=== PATIENT | male | born 1935 | race Caucasian/White ===

== ENCOUNTER 2021-09-21 11:40 | Inpatient (IN) ==
--- NOTE | 2021-09-21 12:18 | Emergency Department Note ---
Impression & Plan COVID-19 Discharge ED Provider Note HPI: The patient is an 86-year-old gentleman with history of stage III chronic kidney disease, early onset dementia according to his son at the bedside, presents the emergency department after he was found down on the ground in his home this morning when his son came to check on him and his . Patient son at the bedside states that the patient has been exhibiting some weakness and has been fairly ill over the past 2 to 3 weeks. He states that he does seem to have some memory issues that have been getting progressively worse also during this time. Patient has been sleeping in the downstairs of his home, he lives there with his and no one else is in the home. He has been having multiple falls over the past several months. On arrival here to the ED the patient is alert, he does display some mild increased work of breathing. He was placed on nasal cannula oxygen in the field secondary to reported hypoxia. He is otherwise without fever on arrival, he is noted to be hypertensive on arrival. 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, no scleral erythema of the right eye Pulmonary: Diminished breath sounds bilaterally without wheezing or crackles Cardio: Regular rate and rhythm GI: Abdomen is soft, nontender : No suprapubic tenderness MSK: No evidence of trauma or malformation of the extremities, no edema Skin: No evidence of rash Neuro: Alert, no focal deficits Psychiatric: Cooperative equipment monitor phototypesetting: - An order was placed for continuous cardiac monitoring - Patient was noted to be in sinus rhythm with rate of 92 EKG: Rate: 94 Rhythm: Sinus rhythm Intervals: Within normal limits Time: 1308 ST changes: No ST elevation Medical Decision Making: Patient presented to the emergency department generalized weakness, he was found down at his home this morning. He was noted to have an increased oxygen requirement in the field with some hypoxia, placed on 3 L nasal cannula oxygen in the field with good improvement by the time he arrived here to the ED. Lab work here in the ED shows what is likely the patient's baseline creatinine level at 1.66, he is hyponatremic at 146, he was given IV fluids here in the ED for suspected dehydration. He has had some ambulatory dysfunction at home as well as weakness and multiple falls, x-ray imaging of the chest does not show any evidence of fracture, x-ray imaging of the hips does not show any evidence of hip fracture or dislocation. CT imaging of the head was obtained following small dose of Haldol and Ativan as the patient was exhibiting some anxiety and did not want to have this test done, he eventually was in agreement to following medication and CT imaging of the head does not show any evidence of an acute intracranial process. Troponin level is slightly elevated 0.05, this is in conjunction with the patient's chronic kidney disease, he has not had any complaint of chest pain, I do not see any acute ischemic changes on his EKG. Chest x-ray does show evidenc e of a viral pneumonia pattern, COVID-19 testing was obtained here in the ED and is positive. I suspect this may be a source to possibly be exacerbating the patient's underlying ambulatory dysfunction and dementia. He remained hemodynamically stable on 3 L nasal cannula oxygen, he was given a dose of Decadron for his COVID-19 status with hypoxia and viral pneumonia. I discussed the above findings with the patient's son at the bedside, he is in agreement for admission, states the patient will likely need to be placed secondary to his ambulatory dysfunction and safety issues at home. Will be medically admitted for his hypoxia and COVID-19. In addition he has been hypertensive here in the ED and on my reassessment was 202 systolic, he was ordered a dose of IV labetalol. His respiratory status has not changed throughout his stay. Patient son at the bedside is in agreement the above plan, [facility] for consultation for admission. I did discuss the case with the on-call midlevel provider who is in agreement for admission under the service of Dr. Alvarado. Patient was admitted in improved condition. Critical care time: 33 minutes -Stabilization of hypoxia requiring supplemental oxygen for oxygen saturations less than 90% on room air, administration of IV medications for hypertension greater than 200 systolic, time spent at the bedside, interpretation of diagnostic studies, discussion with other healthcare providers, discussion with family Diagnosis: 1. COVID-19 pneumonia 2. Hypoxia with supplemental oxygen requirement 3. Hypernatremia 4. Elevated creatinine 5. Generalized weakness/ambulatory dysfunction with multiple falls at home 6. Elevated troponin Disposition: Admission Theron Jaimes DO Emergency Medicine Past Med/Surg History Surgical History S/P TURP Social History Smoking Status: Never smoker Feels Safe at Home: Yes Allergies Allergies Allergy/AdvReac Type Severity Reaction Status Date / Time potato Allergy Severe ANAPHYLAXIS Verified 09/21/21 14:49 starch Allergy Severe Difficulty Unverified 09/21/21 16:01 Breathing grass pollen-perennial rye, Allergy Intermediate ITCHY Verified 09/21/21 14:49 standar EYES, RUNNY NOSE, SNEEZING hydrochlorothiazide Allergy Unknown Dizziness, Unverified 09/21/21 16:01 Itching, Nausea pantoprazole Allergy Unknown Headache Unverified 09/21/21 16:01 Penicillins Allergy Unknown HAPPENED Verified 09/21/21 14:49 TO LONG AGO TO REMEMBER Sulfa (Sulfonamide Allergy Unknown Rash/ Lip Unverified 09/21/21 16:01 Antibiotics) Swelling pseudoephedrine AdvReac Unknown Urinary Unverified 09/21/21 16:01 [From Sudafed] Retention Dust Allergy Intermediate RUNNY Uncoded 09/21/21 14:49 NOSE, ITCHY EYES, SNEEZING Home Meds Home Medications Medication Instructions Recorded Confirmed acetaminophen-caffeine 500 mg-65 2 tab PO Q12H 09/21/21 09/21/21 mg tablet (Excedrin Tension Headache) aspirin 81 mg chewable tablet 81 mg PO DAILY 09/21/21 09/21/21 famotidine 10 mg tablet (Pepcid AC) 10 mg PO BID 09/21/21 09/21/21 losartan 100 mg tablet 100 mg PO DAILY 09/21/21 09/21/21 multivitamin 8 tab PO DAILY 09/21/21 09/21/21 multivitamin with minerals 4 tab PO DAILY 09/21/21 09/21/21 neomycin 3.5 mg/g-polymyxin B 1 applic OPHTHALMIC (EYE) HS PRN 09/21/21 09/21/21 10,000 unit/g-dexameth 0.1 % eye oint polyethylene glycol 3350 17 17 g PO DAILY PRN 09/21/21 09/21/21 gram/dose oral powder (Miralax) sodium chloride 0.65 % nasal spray 2 spray INTRANASAL BID PRN 09/21/21 09/21/21 aerosol (Saline Nasal) Results & Data (ED) Vital Signs Vital Signs - 24 hr 09/21/21 11:56 09/21/21 12:16 09/21/21 13:24 Temperature 37.6 C H Temperature Source Axillary Pulse Rate 100 H Pulse Rate [Apical] 98 H Respiratory Rate 20 22 Blood Pressure 191/127 H Blood Pressure [Right Arm] 183/129 H Blood Pressure Mean 148 Blood Pressure Mean [Right Arm] 147 Pulse Oximetry 92 91 94 Oxygen Delivery Method Nasal Cannula Nasal Cannula Nasal Cannula Oxygen Flow Rate 5 5 4 Sepsis Recent Fever Within 48 Hours No Sepsis New/Unexplained Change in Mental Status Yes Sepsis Action Taken by Nursing No Action Required 09/21/21 15:46 Temperature Temperature Source Pulse Rate Pulse Rate [Apical] 97 H Respiratory Rate 28 H Blood Pressure Blood Pressure [Right Arm] 202/128 H Blood Pressure Mean Blood Pressure Mean [Right Arm] 152 Pulse Oximetry 94 Oxygen Delivery Method Room Air Oxygen Flow Rate Sepsis Recent Fever Within 48 Hours Sepsis New/Unexplained Change in Mental Status Sepsis Action Taken by Nursing Laboratory Data Result diagrams: 09/21/21 11:20 09/21/21 11:20 Lab Results 09/21/21 09/21/21 09/21/21 Range/Units 11:20 11:20 11:20 WBC 6.92 (4.8-10.8) K/uL RBC 4.45 L (4.7-6.1) M/uL Hgb 13.4 L (14.0-18.0) g/dL Hct 40.8 L (42-52) % MCV 91.7 (80-100) fL MCH 30.1 (25-34) pg MCHC 32.8 (32-36) g/dL RDW Std Deviation 44.3 (36.4-46.3) fL RDW Coeff of Ga 13.2 (11.5-14.5) % Plt Count 129 L (130-400) K/uL MPV 11.6 H (7.4-10.4) fL Immature Gran % (Auto) 0.4 % Neut % (Auto) 83.2 % Lymph % (Auto) 10.7 % [place] % (Auto) 5.6 % Eos % (Auto) 0.0 % Baso % (Auto) 0.1 % Neut # (Auto) 5.75 (1.4-6.5) K/uL Lymph # (Auto) 0.74 L (1.2-3.4) K/uL [place] # (Auto) 0.39 (0.11-0.59) K/uL Eos # (Auto) 0.00 (0-0.5) K/uL Baso # (Auto) 0.01 (0-0.2) K/uL Immature Gran # (Auto) 0.03 H (0.00-0.02) K/uL PT 10.8 (9.0-12.0) Seconds INR 1.1 (0.9-1.1) Sodium 146 H (136-145) mmol/L Potassium 4.2 (3.5-5.1) mmol/L Chloride 111 H (98-107) mmol/L Carbon Dioxide 24 (21-32) mmol/L Anion Gap 11 (3-11) BUN 44 H (6-23) mg/dl Creatinine 1.66 H (0.6-1.4) mg/dl Est Cr Clr Drug Dosing Not Reportable Est GFR ( Amer) 42.6 ml/min Est GFR (Non-Af Amer) 36.8 ml/min BUN/Creatinine Ratio 26.5 H (10-20) Glucose 116 H (70-99(Fasting)) mg/dl Calcium 8.3 L (8.5-10.1) mg/dl Total Bilirubin 0.9 (0.2-1.0) mg/dl AST 38 (13-39) U/L ALT 18 (7-52) U/L Alkaline Phosphatase 52 (34-104) U/L Troponin I 0.05 H* (0-0.04) ng/ml Total Protein 6.8 (6.0-8.3) gm/dl Albumin 3.7 (3.4-5.0) gm/dl Globulin 3.1 (2.5-4.0) gm/dl Albumin/Globulin Ratio 1.2 (0.9-2) Urine Color Urine Appearance (Clear) Urine pH (4.5-7.5) Ur Specific [place] (1.000-1.030) Urine Protein (Negative) Urine Glucose (UA) (Negative) Urine Ketones (Negative) Urine Blood (Negative) Urine Nitrite (Negative) Urine Bilirubin (Negative) Urine Urobilinogen (Negative) Ur Leukocyte Esterase (Negative) Urine WBC (Auto) (0-5) /hpf Urine RBC (Auto) (0-4) /hpf U Hyaline Cast (Auto) (0-5) /lpf U Epithel Cells (Auto) (0-5) /lpf Urine Bacteria (Auto) (Negative) Granular Casts (0) /lpf SARS-CoV-2, RNA, NAAT (NEGATIVE) 09/21/21 09/21/21 Range/Units 13:10 Unknown WBC (4.8-10.8) K/uL RBC (4.7-6.1) M/uL Hgb (14.0-18.0) g/dL Hct (42-52) % MCV (80-100) fL MCH (25-34) pg MCHC (32-36) g/dL RDW Std Deviation (36.4-46.3) fL RDW Coeff of Ga (11.5-14.5) % Plt Count (130-400) K/uL MPV (7.4-10.4) fL Immature Gran % (Auto) % Neut % (Auto) % Lymph % (Auto) % [place] % (Auto) % Eos % (Auto) % Baso % (Auto) % Neut # (Auto) (1.4-6.5) K/uL Lymph # (Auto) (1.2-3.4) K/uL [place] # (Auto) (0.11-0.59) K/uL Eos # (Auto) (0-0.5) K/uL Baso # (Auto) (0-0.2) K/uL Immature Gran # (Auto) (0.00-0.02) K/uL PT (9.0-12.0) Seconds INR (0.9-1.1) Sodium (136-145) mmol/L Potassium (3.5-5.1) mmol/L Chloride (98-107) mmol/L Carbon Dioxide (21-32) mmol/L Anion Gap (3-11) BUN (6-23) mg/dl Creatinine (0.6-1.4) mg/dl Est Cr Clr Drug Dosing Est GFR ( Amer) ml/min Est GFR (Non-Af Amer) ml/min BUN/Creatinine Ratio (10-20) Glucose (70-99(Fasting)) mg/dl Calcium (8.5-10.1) mg/dl Total Bilirubin (0.2-1.0) mg/dl AST (13-39) U/L ALT (7-52) U/L Alkaline Phosphatase (34-104) U/L Troponin I (0-0.04) ng/ml Total Protein (6.0-8.3) gm/dl Albumin (3.4-5.0) gm/dl Globulin (2.5-4.0) gm/dl Albumin/Globulin Ratio (0.9-2) Urine Color Dark Yellow Urine Appearance Clear (Clear) Urine pH 5.0 (4.5-7.5) Ur Specific [place] 1.025 (1.000-1.030) Urine Protein 2+ H (Negative) Urine Glucose (UA) Negative (Negative) Urine Ketones Trace H (Negative) Urine Blood Negative (Negative) Urine Nitrite Negative (Negative) Urine Bilirubin Negative (Negative) Urine Urobilinogen Negative (Negative) Ur Leukocyte Esterase Negative (Negative) Urine WBC (Auto) 1-5 (0-5) /hpf Urine RBC (Auto) 10-30 H (0-4) /hpf U Hyaline Cast (Auto) 10-30 H (0-5) /lpf U Epithel Cells (Auto) 20-30 H (0-5) /lpf Urine Bacteria (Auto) Negative (Negative) Granular Casts 10-20 H (0) /lpf SARS-CoV-2, RNA, NAAT POSITIVE A* (NEGATIVE) Administered Medications Discontinued Medications Dexamethasone (Dexamethasone Sod Inj 4 Mg/Ml Vial) Confirm Administered Dose 4 mg .ROUTE .STK-MED ONE Stop: 09/21/21 15:59 Last Admin: 09/21/21 16:07 Dose: Not Given Documented by: [id number] Dexamethasone (Dexamethasone Sod Inj 4 Mg/Ml Vial) Confirm Administered Dose 4 mg .ROUTE .STK-MED ONE Stop: 09/21/21 16:02 Last Admin: 09/21/21 16:07 Dose: Not Given Documented by: [id number] Haloperidol Lactate (Haloperidol Lactate 5 Mg/Ml 1 Ml Vial) 5 mg IV NOW STA Stop: 09/21/21 13:53 Last Admin: 09/21/21 13:57 Dose: 5 mg Documented by: [id number] Sodium Chloride (Nss) 500 mls @ 999 mls/hr IV .Q31M MARÍA Stop: 09/21/21 13:00 Last Admin: 09/21/21 13:27 Dose: 999 mls/hr Documented by: [id number] Lorazepam (Ativan) 0.5 mg in 1 mls @ 1 mls/min IV NOW STA Stop: 09/21/21 13:53 Last Admin: 09/21/21 13:57 Dose: 1 mls/min Documented by: [id number] Dexamethasone 8 mg/ Syringe 2 mls @ 1 mls/min IV ONE ONE Stop: 09/21/21 15:50 Last Admin: 09/21/21 16:01 Dose: 1 mls/min Documented by: [id number] Labetalol HCl (Labetalol Hcl Iv 5 Mg/Ml 20ml) 10 mg IV NOW STA Stop: 09/21/21 16:05 Last Admin: 09/21/21 16:14 Dose: 10 mg Documented by: [id number] Cosigned by: [id number] Imaging Data Radiologist's Impression: Chest X-Ray 09/21/21 12:16 XR chest 1V portable CLINICAL HISTORY: Fall. COMPARISON STUDY: Chest radiograph December 20, 2015. FINDINGS: No pneumothorax or pleural effusion is noted. Extensive right lung airspace opacity is noted with moderate airspace opacity within the left mid and lower lung. There is no evidence for pulmonary edema. Cardiomegaly is noted. There is tortuosity/dilatation of the thoracic aorta. Several old left rib fractures are noted. IMPRESSION: 1. No pneumothorax. 2. Moderate to extensive bilateral airspace opacities, as described above. The findings favor pneumonia, likely viral. Radiographic follow-up to ensure resolution is recommended. 3. Cardiomegaly. Tortuosity/dilatation of the thoracic aorta. ACT 112: Negative or not required by law. Electronically signed by: Tyree Aviles M.D. 09/21/2021 3:[address] 09/21/21 12:16 CT OF THE HEAD WITHOUT CONTRAST CLINICAL HISTORY: Trauma. COMPARISON STUDY: No previous studies for comparison. CT DOSE: 994.59 mGy.cm TECHNIQUE: Helical axial images of the head were obtained without IV contrast. Automated exposure control was utilized for the study. A dose lowering technique was utilized adhering to the principles of ALARA. FINDINGS: No acute intracranial hemorrhage, midline shift or mass effect is present. The ventricular system is unremarkable. White matter hypodensity sug gests small vessel disease. The basal cisterns are patent. No extra-axial collections are present. There are no findings to suggest acute dural sinus thrombosis or acute territorial infarct. No significant calvarial abnormalities are present. Visualized portions of the sinuses and mastoid air cells are clear. 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 IMPRESSION: 1. No acute intracranial findings. 2. No calvarial fracture. ACT 112: Negative or not required by law. Electronically signed by: Tyree Aviles M.D. 09/21/2021 3:11 PM Hip/Pelvis X-Ray 09/21/21 12:17 XR hip SAKINA 2v w pelvis CLINICAL HISTORY: Fall. COMPARISON STUDY: No previous studies for comparison. FINDINGS: Sacroiliac joints and symphysis pubis are intact. No acute fracture is identified within the pelvis or hips. There may be postoperative findings within the lower lumbar spine. There is mild joint space narrowing and moderate osteophytosis of both hips. IMPRESSION: No acute fracture within the pelvis or hips. ACT 112: Negative or not required by law. Electronically signed by: Tyree Aviles M.D. 09/21/2021 3:38 PM Discharge Plan Visit Data Chief Complaint: Fall ED Provider: Theron Jaimes Discharge Problem: COVID-19 Forms Stand Alone Forms: [facility] Prescriptions Prescriptions: No Action multivitamin Tablet 8 tab PO DAILY RF: 0 famotidine [Pepcid AC] 10 mg Tablet 10 mg PO BID RF: 0 Excedrin Tension Headache 500-65 mg Tablet 2 tab PO Q12H RF: 0 aspirin 81 mg Tablet,Chewable 81 mg PO DAILY RF: 0 Vision Multivitamin Tablet 4 tab PO DAILY RF: 0 polyethylene glycol 3350 [Miralax] 17 gram/dose Powder 17 g PO DAILY PRN (Reason: Constipation) RF: 0 losartan 100 mg tablet 100 mg PO DAILY RF: 0 neomycin-polymyxin B-dexameth 3.5 mg/g-10,000 unit/g-0.1 % ointment 1 applic ophthalmic (eye) HS PRN (Reason: Apply To Eyelid) RF: 0 Saline Nasal 0.65 % Aerosol,[place] 2 spray INTRANASAL BID PRN (Reason: Nasal Dryness) RF: 0 Referrals Referrals: PCP,NO [Primary Care Provider] -
[2021-09-21] MEDS ORDERED: SODIUM CHLORIDE 0.9% 500 ML IV SCH (12:30)
[2021-09-21 12:39] LABS: INR 1.1 (0.9-1.1); Prothrombin Time 10.8 Seconds (9.0-12.0)
[2021-09-21 12:47] LABS: Hematocrit (blood only) 40.8 % (42-52); Hemoglobin 13.4 g/dL (14.0-18.0); Mean Corpuscular Hemoglobin 30.1 pg (25-34); Mean Corpuscular Hgb Conc 32.8 g/dL (32-36); Mean Corpuscular Volume 91.7 fL (80-100); Mean Platelet Volume 11.6 fL (7.4-10.4); Platelet Count 129 K/uL (130-400); RDW Coefficient of Variation 13.2 % (11.5-14.5); RDW Standard Deviation 44.3 fL (36.4-46.3); Red Blood Count 4.45 M/uL (4.7-6.1); White Blood Count 6.92 K/uL (4.8-10.8)
[2021-09-21 12:51] LABS: Alanine Aminotransferase 18 U/L (7-52); Albumin Globulin Ratio 1.2 (0.9-2); Albumin Level 3.7 gm/dl (3.4-5.0); Alkaline Phosphatase 52 U/L (34-104); Anion Gap 11 (3-11); Aspartate Aminotransferase 38 U/L (13-39); BUN Creatinine Ratio 26.5 (10-20); Bilirubin,Total 0.9 mg/dl (0.2-1.0); Blood Urea Nitrogen 44 mg/dl (6-23); Calcium 8.3 mg/dl (8.5-10.1); Carbon Dioxide 24 mmol/L (21-32); Chloride 111 mmol/L (98-107); Est GFR (African American) 42.6 ml/min; Est GFR (Non-African American) 36.8 ml/min; Globulin 3.1 gm/dl (2.5-4.0); Glucose 116 mg/dl (70-99(Fasting)); Potassium 4.2 mmol/L (3.5-5.1); Sodium 146 mmol/L (136-145); Total Protein 6.8 gm/dl (6.0-8.3)
[2021-09-21 12:57] LABS: Troponin I 0.05 ng/ml (0-0.04)
[2021-09-21 13:09] LABS: Appearance Urine Clear (Clear); Bacteria Urine Automated Negative (Negative); Bilirubin Urine Negative (Negative); Blood Urine Negative (Negative); Color Urine Dark Yellow; Epithelial Cell Urine Auto 20-30 /lpf (0-5); Glucose Urine UA Negative (Negative); Ketones Urine Trace (Negative); Leukocyte Esterase Urine Negative (Negative); Nitrite Urine Negative (Negative); Protein Urine 2+ (Negative); Specific Gravity Urine 1.025 (1.000-1.030); Urobilinogen Urine Negative (Negative)
[2021-09-21 13:23] LABS: Basophils # (auto) 0.01 K/uL (0-0.2); Basophils % (auto) 0.1 %; Immature Granulocytes # (auto) 0.03 K/uL (0.00-0.02); Immature Granulocytes % (auto) 0.4 %; Lymphocytes # (auto) 0.74 K/uL (1.2-3.4); Lymphocytes % (auto) 10.7 %; Monocytes # (auto) 0.39 K/uL (0.11-0.59); Monocytes % (auto) 5.6 %; Neutrophils # (auto) 5.75 K/uL (1.4-6.5); Neutrophils % (auto) 83.2 %
[2021-09-21] MEDS ORDERED: HALOPERIDOL LACTATE 5 MG/ML 1 ML VIAL IV STA (13:52)
[2021-09-21] MEDS ORDERED: LORazepam 0.5 MG/1 ML VIAL IV STA (13:52)
--- NOTE | 2021-09-21 15:12 | CT Scan Report ---
CT OF THE HEAD WITHOUT CONTRAST CLINICAL HISTORY: Trauma. COMPARISON STUDY: No previous studies for comparison. CT DOSE: 994.59 mGy.cm TECHNIQUE: Helical axial images of the head were obtained without IV contrast. Automated exposure con trol was utilized for the study. A dose lowering technique was utilized adhering to the principles o f ALARA. FINDINGS: No acute intracranial hemorrhage, midline shift or mass effect is present. The ventricular system is unremarkable. White matter hypodensity suggests small vessel disease. The basal cisterns ar e patent. No extra-axial collections are present. There are no findings to suggest acute dural sinus thrombosis or acute territorial infarct. No significant calvarial abnormalities are present. Visualiz ed portions of the sinuses and mastoid air cells are clear. Left globe prosthesis is incidentally not ed. IMPRESSION: 1. No acute intracranial findings. 2. No calvarial fracture. ACT 112: Negative or not required by law. Electronically signed by: Tyree Aviles M.D. 09/21/2021 3:11 PM
--- NOTE | 2021-09-21 15:37 | XRay Report ---
XR chest 1V portable CLINICAL HISTORY: Fall. COMPARISON STUDY: Chest radiograph December 20, 2015. FINDINGS: No pneumothorax or pleural effusion is noted. Extensive right lung airspace opacity is note d with moderate airspace opacity within the left mid and lower lung. There is no evidence for pulmona ry edema. Cardiomegaly is noted. There is tortuosity/dilatation of the thoracic aorta. Several old le ft rib fractures are noted. IMPRESSION: 1. No pneumothorax. 2. Moderate to extensive bilateral airspace opacities, as described above. The findings favor pneumon ia, likely viral. Radiographic follow-up to ensure resolution is recommended. 3. Cardiomegaly. Tortuosity/dilatation of the thoracic aorta. ACT 112: Negative or not required by law. Electronically signed by: Tyree Aviles M.D. 09/21/2021 3:36 PM
--- NOTE | 2021-09-21 15:40 | XRay Report ---
XR hip SAKINA 2v w pelvis CLINICAL HISTORY: Fall. COMPARISON STUDY: No previous studies for comparison. FINDINGS: Sacroiliac joints and symphysis pubis are intact. No acute fracture is identified within th e pelvis or hips. There may be postoperative findings within the lower lumbar spine. There is mild vahid int space narrowing and moderate osteophytosis of both hips. IMPRESSION: No acute fracture within the pelvis or hips. ACT 112: Negative or not required by law. Electronically signed by: Tyree Aviles M.D. 09/21/2021 3:38 PM
[2021-09-21] MEDS ORDERED: dexAMETHasone 8 MG in SYRINGE 0 ML IV ONE (15:49)
[2021-09-21] MEDS ORDERED: DEXAMETHASONE SOD INJ 4 MG/ML VIAL ONE ×2 (15:58→16:01)
[2021-09-21] MEDS ORDERED: LABETALOL HCL IV 5 MG/ML 20ML IV STA (16:04)
[2021-09-21 16:52] LABS: C Reactive Protein 13.68 mg/dl (0-0.5)
[2021-09-21 17:10] LABS: Ferritin 394.1 ng/ml (8-388)
[2021-09-21] MEDS ORDERED: hydrALAZINE HCL 20 MG/ML VIAL IV PRN (17:38)
[2021-09-21] MEDS ORDERED: LABETALOL HCL IV 5 MG/ML 20ML IV PRN (17:38)
--- NOTE | 2021-09-21 18:19 | History & Physical Report ---
Date of Service September 21, 2021 Assessment & Plan (1) Ambulatory dysfunction: Plan: Patient is 86-year-old male with PMH HTN, CKD III, PAD, anophthalmos left eye, presented to ER with complaint of fall. Pt with recurrent falls. Has progressive weakness past 3 weeks with illness In ER CT head: No acute intracranial abnormality CPK: Within normal limits Patient with ambulatory dysfunction at baseline has worsened with current COVID- 19 infection Fall precautions Consider PT/OT eval to evaluate prior to discharge (2) COVID-19: Plan: Positive COVID-19 NAAT in ER. CXR: Bilateral airspace opacities consistent with viral pneumonia Patient is not vaccinated Reported onset of symptoms 3 weeks ago. Noted shortness of breath past several days Hypoxic in ER in the 80s, currently on 3 L via nasal cannula with sats 94% CRP, ferritin elevated Procalcitonin pending In ER given dexamethasone Continue dexamethasone Continue supplemental oxygen Airborne isolation CBC, CMP/BMP in am (3) CKD (chronic kidney disease), stage III: Plan: Cr: 1.6. Baseline Cr: 1.6-1.7 Monitor renal functions, avoid nephrotoxic agents when possible (4) Hypertension: Plan: Hypertensive in ER Continue losartan Labetalol, hydralazine as needed DVT Prophylaxis Heparin SQ DNR/DNI as per discussion with pt's son Follows with Dr Quinones for routine care Pt was seen and care coordinated with Dr Alvarado. See addendum History of Present Illness Chief Complaint: Fall Primary Care Provider: Robert Quinones MD Patient is 86-year-old male with PMH HTN, CKD III, PAD, anophthalmos left eye, presented to ER with complaint of fall. Cardiac history obtained from patient's son. Son reports 3 weeks ago both patient and patient's developed fevers, congestion, mild cough. Reports fever congestion and cough have resolved however patient has had weakness. Typically ambulates with cane however past 2 weeks has been sitting and recliner chair and feels too weak to ambulate. Reports patient with history recurrent falls in the past however since illness patient has been falling on almost daily basis. Reports a couple of days ago patient had a fall during the middle night and patient son was not notified by patient's so patient laid on floor for several hours before son got there in the morning. Reports last night patient had a fall around 2 AM and could not get patient up. Patient was on the floor for 6 hours today. Then reports past couple of days he has noticed patient seemed to be breathing heavier and short of breath. Patient denies chest pain. Denies nausea, vomiting, diarrhea. Patient son reports patient has had steady decline with his memory and is worse past couple of years. Unable to further obtain ROS secondary to patient's cognitive status. Allergies Allergy/AdvReac Type Severity Reaction Status Date / Time potato Allergy Severe ANAPHYLAXIS Verified 09/21/21 14:49 starch Allergy Severe Difficulty Unverified 09/21/21 16:01 Breathing grass pollen-perennial rye, Allergy Intermediate ITCHY Verified 09/21/21 14:49 standar EYES, RUNNY NOSE, SNEEZING hydrochlorothiazide Allergy Unknown Dizziness, Unverified 09/21/21 16:01 Itching, Nausea pantoprazole Allergy Unknown Headache Unverified 09/21/21 16:01 Penicillins Allergy Unknown HAPPENED Verified 09/21/21 14:49 TO LONG AGO TO REMEMBER Sulfa (Sulfonamide Allergy Unknown Rash/ Lip Unverified 09/21/21 16:01 Antibiotics) Swelling pseudoephedrine AdvReac Unknown Urinary Unverified 09/21/21 16:01 [From Sudafed] Retention Dust Allergy Intermediate RUNNY Uncoded 09/21/21 14:49 NOSE, ITCHY EYES, SNEEZING Home Medications Medication Instructions Recorded Confirmed Type acetaminophen-caffeine 500 mg-65 2 tab PO Q12H 09/21/21 09/21/21 History mg tablet (Excedrin Tension Headache) aspirin 81 mg chewable tablet 81 mg PO DAILY 09/21/21 09/21/21 History famotidine 10 mg tablet (Pepcid AC) 10 mg PO BID 09/21/21 09/21/21 History losartan 100 mg tablet 100 mg PO DAILY 09/21/21 09/21/21 History multivitamin 8 tab PO DAILY 09/21/21 09/21/21 History multivitamin with minerals 4 tab PO DAILY 09/21/21 09/21/21 History neomycin 3.5 mg/g-polymyxin B 1 applic OPHTHALMIC (EYE) HS PRN 09/21/21 09/21/21 History 10,000 unit/g-dexameth 0.1 % eye oint polyethylene glycol 3350 17 17 g PO DAILY PRN 09/21/21 09/21/21 History gram/dose oral powder (Miralax) sodium chloride 0.65 % nasal spray 2 spray INTRANASAL BID PRN 09/21/21 09/21/21 History aerosol (Saline Nasal) Past Med/Surg History Medical History (Updated 09/21/21 @ 18:29 by Shell Louis PA-C) Blindness of left eye BPH (benign prostatic hypertrophy) CKD (chronic kidney disease), stage III GERD (gastroesophageal reflux disease) Hypertension Surgical History (Updated 09/21/21 @ 18:26 by Shell Louis PA-C) H/O esophagogastroduodenoscopy H/O nasal septoplasty History of removal of eye "O.S." S/P tonsillectomy S/P TURP S/P TURP (transurethral resection of prostate) Family History (Updated 09/21/21 @ 18:26 by Shell Louis PA-C) Mother Breast cancer Other Hypertension Social History (Updated 09/21/21 @ 18:26 by Shell Louis PA-C) Smoking Status: Never smoker Hx Alcohol Use: No Hx Substance Use: No Feels Safe at Home: Yes Review of Systems Review of Systems: Unobtainable due to cognitive status Physical Exam Physical Exam: General: Elderly male, WDWN Head: normocephalic, atraumatic Eyes: PERRL, EOM's intact with no icterus of right eye. Left: anophthalmos ENT: hard of hearing, normal inspection external ears, nose, mucous membranes moist Neck: supple, trachea midline Lungs: on 3L via NC with respiration 24, +rales bases bilaterally CV: RRR, no pretibial edema Abd: normal BS, soft, non-tender Ext: no cyanosis, no calf tenderness Neuro: Alert, pleasantly confused, generalized weakness Skin: warm, dry Results & Data Results & Data ([facility]) Vital Signs (Past 12 Hours) Vital Signs Temp Pulse Pulse Resp BP BP Pulse Ox 09/21/21 15:46 97 H 28 H 202/128 H 94 09/21/21 13:24 98 H 22 183/129 H 94 09/21/21 12:16 91 09/21/21 11:56 37.6 C H 100 H 20 191/127 H 92 Laboratory Results Short CBC 09/21/21 Range/Units 11:20 WBC 6.92 (4.8-10.8) K/uL Hgb 13.4 L (14.0-18.0) g/dL Hct 40.8 L (42-52) % Plt Count 129 L (130-400) K/uL BMP 09/21/21 11:20 Sodium 146 H Potassium 4.2 Chloride 111 H Carbon Dioxide 24 BUN 44 H Creatinine 1.66 H Glucose 116 H Calcium 8.3 L Cardiac Enzymes 09/21/21 09/21/21 Range/Units 11:20 11:20 Total Creatine Kinase 158 (30-223) U/L Troponin I 0.05 H* (0-0.04) ng/ml Liver Function 09/21/21 Range/Units 11:20 Total Bilirubin 0.9 (0.2-1.0) mg/dl AST 38 (13-39) U/L ALT 18 (7-52) U/L Alkaline Phosphatase 52 (34-104) U/L Albumin 3.7 (3.4-5.0) gm/dl Urine 09/21/21 Range/Units Unknown Urine Color Dark Yellow Urine Appearance Clear (Clear) Urine pH 5.0 (4.5-7.5) Ur Specific [place] 1.025 (1.000-1.030) Urine Protein 2+ H (Negative) Urine Glucose (UA) Negative (Negative) Diagnostic Findings Chest X-Ray 09/21/21 12:16 XR chest 1V portable CLINICAL HISTORY: Fall. COMPARISON STUDY: Chest radiograph December 20, 2015. FINDINGS: No pneumothorax or pleural effusion is noted. Extensive right lung airspace opacity is noted with moderate airspace opacity within the left mid and lower lung. There is no evidence for pulmonary edema. Cardiomegaly is noted. There is tortuosity/dilatation of the thoracic aorta. Several old left rib fractures are noted. IMPRESSION: 1. No pneumothorax. 2. Moderate to extensive bilateral airspace opacities, as described above. The findings favor pneumonia, likely viral. Radiographic follow-up to ensure resolution is recommended. 3. Cardiomegaly. Tortuosity/dilatation of the thoracic aorta. ACT 112: Negative or not required by law. Electronically signed by: Tyree Aviles M.D. 09/21/2021 3:[address] 09/21/21 12:16 CT OF THE HEAD WITHOUT CONTRAST CLINICAL HISTORY: Trauma. COMPARISON STUDY: No previous studies for comparison. CT DOSE: 994.59 mGy.cm TECHNIQUE: Helical axial images of the head were obtained without IV contrast. Automated exposure control was utilized for the study. A dose lowering technique was utilized adhering to the principles of ALARA. FINDINGS: No acute intracranial hemorrhage, midline shift or mass effect is present. The ventricular system is unremarkable. White matter hypodensity suggests small vessel disease. The basal cisterns are patent. No extra-axial collections are present. There are no findings to suggest acute dural sinus thrombosis or acute territorial infarct. No significant calvarial abnormalities are present. Visualized portions of the sinuses and mastoid air cells are clear. 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 IMPRESSION: 1. No acute intracranial findings. 2. No calvarial fracture. ACT 112: Negative or not required by law. Electronically signed by: Tyree Aviles M.D. 09/21/2021 3:11 PM Hip/Pelvis X-Ray 09/21/21 12:17 XR hip SAKINA 2v w pelvis CLINICAL HISTORY: Fall. COMPARISON STUDY: No previous studies for comparison. FINDINGS: Sacroiliac joints and symphysis pubis are intact. No acute fracture is identified within the pelvis or hips. There may be postoperative findings within the lower lumbar spine. There is mild joint space narrowing and moderate osteophytosis of both hips. IMPRESSION: No acute fracture within the pelvis or hips. ACT 112: Negative or not required by law. Electronically signed by: Tyree vAiles M.D. 09/21/2021 3:38 PM Code Status & VTE Plan VTE Prophylaxis Plan VTE Prophylaxis will be ordered: Yes Supervising Physician Co-Signing Physician Notes 86-year-old male with PMH HTN, CKD III, PAD, anophthalmos left eye, presented to ER 09/21 with complaint of recurrent falls, generalized weakness and ambulatory dysfunction. He also has been bed ridden and feeling sick since last 3 weeks. Labs and imagings reviewed. Trend trops, dexa for covid, PT/OT and prn meds for HTN urgency. EKG in AM. Upon Exam GENERAL: Alert and oriented x3. NAD, on 3L NC. HEENT: No pallor, no icterus. Pupils equal, round and reactive to light. Oral mucosa moist. Left Eye anophthalmos. NECK: No JVD, no neck masses. HEART: S1 and S2 heard. Regular rate and rhythm. No murmur, no gallop. RESPIRATORY SYSTEM: Normal AP diameter. No accessory muscle use. No wheezing, no crackles. Decreased breath sounds ABDOMEN: Soft, bowel sounds present, nontender, no distention. CENTRAL NERVOUS SYSTEM: No facial droop. Speech is clear. Obeys simple commands. Moves extremities. EXTREMITIES: No edema, no erythema seen. Bruises over b/l elbows. I have seen and examined the patient and have discussed the case with the provider above. I agree with the assessment and plan as stated.
[2021-09-21] MEDS ORDERED: SODIUM CHLORIDE 0.65% NA SOLN 45 ML (OCEAN) PRN (19:53)
[2021-09-21] MEDS ORDERED: POLYETHYLENE (MIRALAX) 17 GM PACK PO PRN (19:53)
[2021-09-21] MEDS ORDERED: NEOMYCIN/POLYMYXIN/DEXAMETHA OP OINT 3.5 GM TUBE OP PRN (19:53)
[2021-09-21] MEDS ORDERED: NON-FORMULARY MEDICATION (Acetaminophen-Caffeine [Excedrin Tension Headache] 500-65 mg Tab PO SCH (19:53)
[2021-09-21] MEDS: SODIUM CHLORIDE 0.45 % 1,000 ML IV SCH (20:45)
[2021-09-21] MEDS: HEPARIN SOD 5,000 UNIT/0.5 ML VIAL SQ SCH (21:01)
[2021-09-21] MEDS: FAMOTIDINE 10 MG TABLET PO SCH (21:01)
--- NOTE | 2021-09-21 22:47 | Communication Note ---
Date of Service: September 21, 2021 Overnight developments : 09/21/21, 1045PM Made aware by RN of uncontrolled blood pressure. BP 183/97 Patient comfortable as per RN. AP Hypertensive urgency Initiate Amlodipine. 09/22/21, 120AM Patient with cough symptoms productive of yellow sputum. Asking for cough medicine for sore throat as per RN. Doxycycline for superimposed bacterial infection.
[2021-09-21] MEDS ORDERED: amLODIPine BESYLATE 5 MG TAB PO SCH (22:50)
[2021-09-22 01:02] LABS: Troponin I 0.05 ng/ml (0-0.04)
[2021-09-22] MEDS ORDERED: COUGH DROP (SUGAR FREE) LOZ 24 LOZ/1 BOX BUCCAL PRN (01:15)
[2021-09-22] MEDS ORDERED: STAT IV STA (01:23)
[2021-09-22] MEDS ORDERED: DOXYCYCLINE HYCLATE 100 MG in DEXTROSE 5% 100 ML IV STA (01:25)
[2021-09-22] MEDS ORDERED: CALCIUM GLUCONATE 10% 1,000 MG in DEXTROSE 5% 50 ML IV ONE (01:27)
[2021-09-22 01:40] LABS: Magnesium 2.3 mg/dl (1.7-2.4)
[2021-09-22] MEDS: ACETAMINOPHEN 325 MG TAB PO PRN (02:29)
[2021-09-22] MEDS ORDERED: METOPROLOL TARTRATE 1 MG/ML VIAL IV PRN (08:15)
[2021-09-22] MEDS ORDERED: METOPROLOL TARTRATE 1 MG/ML VIAL IV ONE (08:18)
[2021-09-22] MEDS: ASPIRIN 81 MG ECTAB PO SCH (08:24)
[2021-09-22] MEDS: FAMOTIDINE 10 MG TABLET PO SCH ×2 (08:24→19:57)
[2021-09-22] MEDS: dexAMETHasone 6 MG in SYRINGE 0 ML IV SCH (08:24)
[2021-09-22] MEDS: HEPARIN SOD 5,000 UNIT/0.5 ML VIAL SQ SCH ×3 (08:25→21:26)
[2021-09-22] MEDS: METOPROLOL TARTRATE 1 MG/ML VIAL IV ONE ×2 (08:32→09:18)
--- NOTE | 2021-09-22 08:48 | Hospitalist Progress Note ---
Date of Service September 22, 2021 Assessment & Plan (1) Ambulatory dysfunction: (2) Acute respiratory failure with hypoxia: (3) Atrial fibrillation with RVR: Plan: 86-year-old male with PMH HTN, CKD III, PAD, anophthalmos left eye, presented to ER 09/21 with complaint of recurrent falls, generalized weakness and ambulatory dysfunction. He also has been bed ridden and feeling sick since last 3 weeks. Found covid Positive in the ED. he is being managed for the following: #. Ambulatory dysfunction: #. Recurrent Falls Per son, patient is bedridden and feeling sick since 3 weeks [employer] and has had multiple falls since 1 and half years. He uses walker. Admitting CXR positive for several old left rib fractures. Admitting CT head and x-ray hip/pelvis negative for any acute findings. Admitting CPK WNL Ambulatory dysfunction at baseline likely worsened with current COVID-19 infection. Fall precaution, PT/OT, likely need placement. #. COVID-19: #. Acute hypoxic respiratory failure Feeling sick since 3 weeks ago [employer]. And shortness of breath past several days [employer]. Admitting CXR consistent with viral pneumonia, patient not vaccinated No home oxygen. At admission, SaO2 in the 80s in ED requiring 3 L nasal cannula with improvement in SaO2 to 94%. CRP, ferritin elevated Procalcitonin negative Continue dexamethasone 09/21, not a candidate for remdesivir due to duration. Supplemental oxygen, incentive spirometer, proning as able. Currently requiring 4 L nasal cannula oxygen. Airborne isolation Follow-up labs. #. Afib RVR Patient denies history of A. fib in the past, not on any anticoagulation in the past per patient. No history of blood clot in the past. TSH wnl. Patient became A. fib RVR at 7:23 AM 09/22/2021, heart rate in 130s to 140s. Cardiology consulted, metoprolol 5 mg IV every 5 minutes as needed for total of 3 doses. Send ECHO. If not controlled will use Cardizem, await cardiology recommendation. #. CKD (chronic kidney disease), stage III: Cr: 1.6. Baseline Cr: 1.6-1.7 Monitor renal functions, avoid nephrotoxic agents when possible #. Hypertension: Hypertensive in ER Continue losartan with holding parameter Labetalol, hydralazine as needed with holding parameter DVT Prophylaxis Heparin SQ DNR/DNI as per discussion with pt's son Follows with Dr Quinones for routine care Admission and Anticipated Discharge Date Admission Date: September 21, 2021 Subjective 86-year-old gentleman being managed for ambulatory dysfunction/weakness/COVID-19 infection/pneumonia/acute respiratory failure/newly developed a fever on 09/22. Patient seen and examined at bedside, on 4 L nasal cannula oxygen, eating his breakfast, NAD, no new acute events overnight per RN. Patient reports eating okay. Patient went into A. fib RVR in the morning. This is new to him. Patient denies any chest pain or feeling of heart racing. Patient denies having any heart doctor or A. fib in the past. Pt reports improving cough. Denies fever/chills/Headache/dizziness/belly pain/other review of symptoms. Physical Exam Physical Exam: GENERAL: Alert and oriented x3. NAD, on 4L NC. HEENT: No pallor, no icterus. Pupils equal, round and reactive to light. Oral mucosa moist. Left Eye anophthalmos. NECK: No JVD, no neck masses. HEART: S1 and S2 heard. irregular rate and rhythm. No murmur, no gallop. RESPIRATORY SYSTEM: Normal AP diameter. No accessory muscle use. No wheezing, no crackles. Decreased breath sounds ABDOMEN: Soft, bowel sounds present, nontender, no distention. CENTRAL NERVOUS SYSTEM: No facial droop. Speech is clear. Obeys simple commands. Moves extremities. EXTREMITIES: No edema, no erythema seen. Bruises over b/l elbows. Results & Data Results & Data ([facility]) Vital Signs (Past 12 Hours) Vital Signs Temp Pulse Pulse Pulse Resp BP BP 09/22/21 08:19 138 H 104/74 09/22/21 08:16 138 H 09/22/21 07:45 36.3 C L 78 22 201/112 H 09/22/21 07:12 66 09/22/21 02:21 36.6 C 68 18 173/98 H 09/22/21 01:23 71 16 09/21/21 23:34 61 09/21/21 22:37 79 09/21/21 22:18 73 09/21/21 22:11 36.5 C 18 09/21/21 21:45 36.5 C 77 76 18 210/112 H 09/21/21 20:43 69 24 BP Pulse Ox Pulse Ox 09/22/21 08:19 09/22/21 08:16 104/74 09/22/21 07:45 93 09/22/21 07:12 09/22/21 02:21 91 09/22/21 01:23 163/96 H 92 09/21/21 23:34 176/97 H 94 09/21/21 22:37 183/97 H 09/21/21 22:18 09/21/21 22:11 174/92 H 93 09/21/21 21:45 210/112 H 91 09/21/21 20:43 168/101 H 92 93
[2021-09-22 09:00] LABS: Hemoglobin 12.9 g/dL (14.0-18.0); Mean Corpuscular Hemoglobin 30.4 pg (25-34); Mean Corpuscular Hgb Conc 33.1 g/dL (32-36); Mean Platelet Volume 10.3 fL (7.4-10.4); Platelet Count 161 K/uL (130-400); RDW Coefficient of Variation 13.2 % (11.5-14.5); RDW Standard Deviation 44.3 fL (36.4-46.3); Red Blood Count 4.24 M/uL (4.7-6.1); White Blood Count 6.08 K/uL (4.8-10.8)
--- NOTE | 2021-09-22 09:20 | Electrocardiogram Report ---
Test Reason : Blood Pressure : / mmHG Vent. Rate : 094 BPM Atrial Rate : 094 BPM P-R Int : 128 ms QRS Dur : 066 ms QT Int : 358 ms P-R-T Axes : 016 -22 067 degrees QTc Int : 447 ms Poor data quality, interpretation may be adversely affected Sinus rhythm with Premature supraventricular complexes Left ventricular hypertrophy with repolarization abnormality Abnormal ECG When compared with ECG of 20-DEC-2015 00:13, Premature supraventricular complexes are now Present Confirmed by Pastor Callejas ([id number]) on 09/22/2021 9:20:09 AM Referred By: REFERRED SELF Confirmed By:Pastor Callejas
[2021-09-22] MEDS: LOSARTAN POTASSIUM 50 MG TAB PO SCH (09:24)
[2021-09-22 09:26] LABS: BUN Creatinine Ratio 30.3 (10-20); Calcium 8.1 mg/dl (8.5-10.1); Creatinine Clr Calc Pharmacy 41.2 ml/min; Est GFR (African American) 51.5 ml/min; Est GFR (Non-African American) 44.4 ml/min; Magnesium 2.2 mg/dl (1.7-2.4); Phosphorus 3.8 mg/dl (2.5-4.9); Potassium 4.1 mmol/L (3.5-5.1)
[2021-09-22] MEDS: SODIUM CHLORIDE 0.45 % 1,000 ML IV SCH (09:35)
[2021-09-22 09:49] LABS: Troponin I 0.04 ng/ml (0-0.04)
--- NOTE | 2021-09-22 10:13 | Cardiology Consultation ---
Date of Consultation September 22, 2021 Assessment & Plan (1) Atrial fibrillation with RVR: (2) Acute respiratory failure with hypoxia: (3) Ambulatory dysfunction: (4) COVID-19: (5) CKD (chronic kidney disease), stage III: Unvaccinated 86-year-old male presents with Covid 19 associated pneumonia Lapsed into atrial fibrillation after admission Rapid ventricular response despite receiving multiple boluses of IV metoprolol. Consideration may be given to amiodarone however, he has received Haldol this admission which is concerning for QT prolongation with amiodarone and given his active COVID-19 associated pneumonia I would also be concerned about the effects on his lungs. So for now we will attempt rate control with IV Cardizem bolus and drip. Oral metoprolol may be continued as well. No trauma reported with the fall so may start IV heparin if the patient remains in atrial fibrillation for greater than 72 hours. With reported history of the amatory dysfunction and multiple falls the patient does not appear to be a long-term anticoagulation candidate, will need to revisit this with family prior to discharge. History of Present Illness Reason for Consultation: Atrial fibrillation with rapid ventricular response Requesting Physician: Dr. Alvarado Attending Physician: Dontrell Alvarado MD History of Present Illness The patient is an 86-year-old male who presented to [facility] on 09/21/2021 with reports of a fall. His son stated that the patient has not been feeling well for approximately 3 weeks now with fevers, cough weakness and congestion. A few days ago the patient had a fall in the middle of the night and he laid on the floor for several hours until his son was able to pick him up, approximately 6 hours. There is also been reports of worsening shortness of breath. History obtained through review of medical records and discussion with hospitalist. Allergies Allergy/AdvReac Type Severity Reaction Status Date / Time potato Allergy Severe ANAPHYLAXIS Verified 09/21/21 14:49 starch Allergy Severe Difficulty Unverified 09/21/21 16:01 Breathing grass pollen-perennial rye, Allergy Intermediate ITCHY Verified 09/21/21 14:49 standar EYES, RUNNY NOSE, SNEEZING hydrochlorothiazide Allergy Unknown Dizziness, Unverified 09/21/21 16:01 Itching, Nausea pantoprazole Allergy Unknown Headache Unverified 09/21/21 16:01 Penicillins Allergy Unknown HAPPENED Verified 09/21/21 14:49 TO LONG AGO TO REMEMBER Sulfa (Sulfonamide Allergy Unknown Rash/ Lip Unverified 09/21/21 16:01 Antibiotics) Swelling pseudoephedrine AdvReac Unknown Urinary Unverified 09/21/21 16:01 [From [facility]] Retention Dust Allergy Intermediate RUNNY Uncoded 09/21/21 14:49 NOSE, ITCHY EYES, SNEEZING Home Medications Medication Instructions Recorded Confirmed Type acetaminophen-caffeine 500 mg-65 2 tab PO Q12H 09/21/21 09/21/21 History mg tablet (Excedrin Tension Headache) aspirin 81 mg chewable tablet 81 mg PO DAILY 09/21/21 09/21/21 History famotidine 10 mg tablet (Pepcid AC) 10 mg PO BID 09/21/21 09/21/21 History losartan 100 mg tablet 100 mg PO DAILY 09/21/21 09/21/21 History multivitamin 8 tab PO DAILY 09/21/21 09/21/21 History multivitamin with minerals 4 tab PO DAILY 09/21/21 09/21/21 History neomycin 3.5 mg/g-polymyxin B 1 applic OPHTHALMIC (EYE) HS PRN 09/21/21 09/21/21 History 10,000 unit/g-dexameth 0.1 % eye oint polyethylene glycol 3350 17 17 g PO DAILY PRN 09/21/21 09/21/21 History gram/dose oral powder (Miralax) sodium chloride 0.65 % nasal spray 2 spray INTRANASAL BID PRN 09/21/21 09/21/21 History aerosol (Saline Nasal) Patient History Medical History Blindness of left eye BPH (benign prostatic hypertrophy) CKD (chronic kidney disease), stage III GERD (gastroesophageal reflux disease) Hypertension Surgical History H/O esophagogastroduodenoscopy H/O nasal septoplasty History of removal of eye "O.S." S/P tonsillectomy S/P TURP S/P TURP (transurethral resection of prostate) Family History Mother Breast cancer Other Hypertension Social History Smoking Status: Never smoker Hx Alcohol Use: No Hx Substance Use: No Preferred Language: Salvadorean Communication Ability: Effective Nitrocellulose Maker Required: No Beliefs That Will Affect Care: Roman Catholic marital status: Current Living Situation: Spouse How many Children do You have: 2 Feels Safe at Home: Yes Assistive Devices: Cane Results & Data ([facility]) Vital Signs (Past 12 Hours) Vital Signs Temp Pulse Pulse Pulse Resp BP BP 09/22/21 09:35 125 H 141/81 H 09/22/21 09:18 134 H 114/75 09/22/21 08:19 138 H 104/74 09/22/21 08:16 138 H 09/22/21 07:45 36.3 C L 78 22 201/112 H 09/22/21 07:12 66 09/22/21 02:21 36.6 C 68 18 173/98 H 09/22/21 01:23 71 16 09/21/21 23:34 61 09/21/21 22:37 79 09/21/21 22:18 73 BP Pulse Ox 09/22/21 09:35 09/22/21 09:18 09/22/21 08:19 09/22/21 08:16 104/74 09/22/21 07:45 93 09/22/21 07:12 09/22/21 02:21 91 09/22/21 01:23 163/96 H 92 09/21/21 23:34 176/97 H 94 09/21/21 22:37 183/97 H 09/21/21 22:18
[2021-09-22] MEDS ORDERED: dilTIAZem HCl 5 MG/ML 5 ML VIAL IV STA (10:15)
[2021-09-22] MEDS ORDERED: STAT IV Infusion **Titration per Protocol STA (10:15)
--- NOTE | 2021-09-22 11:11 | Electrocardiogram Report ---
Test Reason : Blood Pressure : / mmHG Vent. Rate : 138 BPM Atrial Rate : 133 BPM P-R Int : 000 ms QRS Dur : 072 ms QT Int : 336 ms P-R-T Axes : 000 -25 135 degrees QTc Int : 509 ms Atrial fibrillation with rapid ventricular response Moderate voltage criteria for LVH, may be normal variant Nonspecific ST and T wave abnormality Abnormal ECG When compared with ECG of 21-SEP-2021 13:08, Atrial fibrillation has replaced Sinus rhythm Confirmed by Pastor Callejas ([id number]) on 09/22/2021 11:10:55 AM Referred By: REFERRED SELF Confirmed By:Pastor Callejas
[2021-09-22] MEDS: dilTIAZem HCL 125 MG in DEXTROSE 5% 100 ML IV SCH ×2 (11:57→22:10)
--- NOTE | 2021-09-22 14:09 | XRay Report ---
SINGLE VIEW CHEST CLINICAL HISTORY: Dyspnea. Hypoxia. FINDINGS: An AP, portable, upright chest radiograph is compared to study dated 09/21/2021 and 11/29/2015 . The examination is degraded by portable technique and patient rotation. The heart is enlarged. Tort uosity/dilatation of the thoracic aorta is unchanged as compared to prior studies. Multifocal airspac e consolidation is again seen throughout both lungs. This is similar to yesterday. No large pleural e ffusion or pneumothorax is identified. The skeletal structures are osteopenic. There are healed left- sided rib fractures. IMPRESSION: 1. Multifocal airspace consolidation has not appreciably changed as compared to yesterday. 2. Cardiomegaly with dilatation/tortuosity of the thoracic aorta is similar to previous. ACT 112: Negative or not required by law. Electronically signed by: Erasmo Man M.D. 09/22/2021 2:08 PM
[2021-09-22] MEDS: DOXYCYCLINE HYCLATE 100 MG CAP PO SCH (19:57)
[2021-09-23] MEDS: ACETAMINOPHEN 325 MG TAB PO PRN (00:25)
[2021-09-23] MEDS: dilTIAZem HCL 125 MG in DEXTROSE 5% 100 ML IV SCH ×2 (05:37→23:18)
[2021-09-23 06:41] LABS: Hematocrit (blood only) 41.1 % (42-52); Hemoglobin 13.7 g/dL (14.0-18.0); Mean Corpuscular Hemoglobin 30.3 pg (25-34); Mean Corpuscular Hgb Conc 33.3 g/dL (32-36); Mean Corpuscular Volume 90.9 fL (80-100); Mean Platelet Volume 11.6 fL (7.4-10.4); Platelet Count 174 K/uL (130-400); RDW Coefficient of Variation 13.2 % (11.5-14.5); RDW Standard Deviation 44.3 fL (36.4-46.3); Red Blood Count 4.52 M/uL (4.7-6.1); White Blood Count 13.85 K/uL (4.8-10.8)
[2021-09-23 07:07] LABS: BUN Creatinine Ratio 33.9 (10-20); Calcium 7.9 mg/dl (8.5-10.1); Creatinine Clr Calc Pharmacy 34.2 ml/min; Est GFR (African American) 41.1 ml/min; Est GFR (Non-African American) 35.5 ml/min; Magnesium 2.4 mg/dl (1.7-2.4); Phosphorus 4.3 mg/dl (2.5-4.9); Potassium 3.9 mmol/L (3.5-5.1)
[2021-09-23] MEDS: LOSARTAN POTASSIUM 50 MG TAB PO SCH (08:16)
[2021-09-23] MEDS: HEPARIN SOD 5,000 UNIT/0.5 ML VIAL SQ SCH ×2 (08:16→23:23)
[2021-09-23] MEDS: DOXYCYCLINE HYCLATE 100 MG CAP PO SCH ×2 (08:17→23:22)
[2021-09-23] MEDS: dexAMETHasone 6 MG in SYRINGE 0 ML IV SCH (08:17)
[2021-09-23] MEDS: ASPIRIN 81 MG ECTAB PO SCH (08:17)
[2021-09-23] MEDS ORDERED: SODIUM CHLORIDE 0.9% 1000ML 1,000 ML IV SCH (11:15)
[2021-09-23] MEDS: FAMOTIDINE 10 MG TABLET PO SCH ×2 (11:32→22:05)
--- NOTE | 2021-09-23 12:20 | Cardiology Progress Note ---
Date of Service September 23, 2021 Assessment & Plan (1) Atrial fibrillation with RVR: (2) Acute respiratory failure with hypoxia: (3) Ambulatory dysfunction: (4) COVID-19: (5) CKD (chronic kidney disease), stage III: Plan: Unvaccinated 86-year-old male presents with Covid 19 associated pneumonia Lapsed into atrial fibrillation after admission Rapid ventricular response despite receiving multiple boluses of IV metoprolol. Consideration may be given to amiodarone however, he has received Haldol this admission which is concerning for QT prolongation with amiodarone and given his active COVID-19 associated pneumonia I would also be concerned about the effects on his lungs. So for now we will attempt rate control with IV Cardizem bolus and drip. Oral metoprolol may be continued as well. No trauma reported with the fall so may start IV heparin if the patient remains in atrial fibrillation for greater than 72 hours. With reported history of the amatory dysfunction and multiple falls the patient does not appear to be a long-term anticoagulation candidate, will need to revisit this with family prior to discharge. Admission and Anticipated Discharge Date Admission Date: September 21, 2021 Subjective Chart reviewed. Telemetry reviewed: Atrial fibrillation with variable rates. Results & Data ([facility]) Vital Signs (Past 12 Hours) Vital Signs Temp Pulse Pulse Resp BP Pulse Ox 09/23/21 10:45 122 H 114/82 09/23/21 08:00 120 H 09/23/21 07:55 37.2 C 122 H 22 115/83 91 09/23/21 03:11 109 H 18 134/79 92
--- NOTE | 2021-09-23 12:37 | Hospitalist Progress Note ---
Date of Service September 23, 2021 Assessment & Plan (1) Ambulatory dysfunction: (2) Acute respiratory failure with hypoxia: (3) Atrial fibrillation with RVR: Plan: 86-year-old male with PMH HTN, CKD III, PAD, anophthalmos left eye, presented to ER 09/21 with complaint of recurrent falls, generalized weakness and ambulatory dysfunction. He also has been bed ridden and feeling sick since last 3 weeks. Found covid Positive in the ED. he is being managed for the following: #. Ambulatory dysfunction: #. 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 He uses walker. Admitting CXR positive for several old left rib fractures. Admitting CT head and x-ray hip/pelvis negative for any acute findings. Admitting CPK WNL Ambulatory dysfunction at baseline likely worsened with current COVID-19 infection. Fall precaution, PT/OT, likely need placement. #. COVID-19: #. 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 And shortness of breath past several days [employer]RA[employer] FARMWORKER. Admitting CXR consistent with viral pneumonia, patient not vaccinated No home oxygen. At admission, SaO2 in the 80s in ED requiring 3 L nasal cannula with improvement in SaO2 to 94%. CRP, ferritin elevated Procalcitonin negative Continue dexamethasone 09/21, not a candidate for remdesivir due to duration. Supplemental oxygen, incentive spirometer, proning as able. Currently requiring 8 L nasal cannula oxygen. Airborne isolation, tessalon perle, mucinex. Follow-up labs. #. Afib RVR Patient denies history of A. fib in the past, not on any anticoagulation in the past per patient. No history of blood clot in the past. TSH wnl. Patient became A. fib RVR at 7:23 AM 09/22/2021, heart rate in 130s to 140s. Cardiology consulted, on cardizem drip + PO metoprolol, to be started in iv heparin drip if the patient remains in AFib for 72 hours. 09/22 ECHO: EF 60-65%, diastolic dysfxn, severe concentric LVH Appreciate cardio input #. CKD (chronic kidney disease), stage III: Cr: 1.6. Baseline Cr: 1.6-1.7 Monitor renal functions, avoid nephrotoxic agents when possible #. Hypertension: Hypertensive in ER Continue losartan with holding parameter Labetalol, hydralazine as needed with holding parameter DVT Prophylaxis Heparin SQ DNR/DNI as per discussion with pt's son Follows with Dr Quinones for routine care Admission and Anticipated Discharge Date Admission Date: September 21, 2021 Subjective 86-year-old gentleman being managed for ambulatory dysfunction/weakness/COVID-19 infection/pneumonia/acute respiratory failure/newly developed (09/22) Afib rvr. Patient seen and examined at bedside, on 8 L nasal cannula oxygen, lying in bed, NAD, no new acute events overnight. Per RN eating less. Patient went into A. fib RVR in the morning of 09/22. Patient denies any chest pain or feeling of heart racing. Patient denies having any heart doctor or A. fib in the past. Pt reports having intermittent cough but can't spit out sputum. Pt reports no BM since last few days. Denies fever/chills/Headache/dizziness/belly pain/other review of symptoms. Telemetry reviewed, HRs has been 130s to 160s overnight and in AM. Physical Exam Physical Exam: GENERAL: Alert and oriented x3. NAD, on 8L NC. HEENT: No pallor, no icterus. Pupils equal, round and reactive to light. Oral mucosa moist. Left Eye anophthalmos. NECK: No JVD, no neck masses. HEART: S1 and S2 heard. irregular rate and rhythm. No murmur, no gallop. RESPIRATORY SYSTEM: Normal AP diameter. No accessory muscle use. No wheezing, no crackles. Decreased breath sounds ABDOMEN: Soft, bowel sounds present, nontender, no distention. CENTRAL NERVOUS SYSTEM: No facial droop. Speech is clear. Obeys simple commands. Moves extremities. EXTREMITIES: No edema, no erythema seen. Bruises over b/l elbows. Results & Data Results & Data ([facility]) Vital Signs (Past 12 Hours) Vital Signs Temp Pulse Pulse Resp BP Pulse Ox 09/23/21 10:45 122 H 114/82 09/23/21 08:00 120 H 09/23/21 07:55 37.2 C 122 H 22 115/83 91 09/23/21 03:11 109 H 18 134/79 92
[2021-09-23] MEDS: BENZONATATE 100 MG CAPSULE PO SCH ×2 (13:28→22:05)
[2021-09-23] MEDS: METOPROLOL TARTRATE 25 MG TAB PO SCH ×2 (13:28→18:03)
[2021-09-23] MEDS ORDERED: HALOPERIDOL LACTATE 5 MG/ML 1 ML VIAL IV STA (16:27)
[2021-09-23] MEDS: OLANZapine 10 MG/2.1 ML SDV IM PRN (22:00)
[2021-09-23] MEDS: guaiFENesin 600 MG TABCR PO SCH (23:22)
[2021-09-23] MEDS ORDERED: OLANZapine 10 MG/2.1 ML SDV IM STA (23:34)
[2021-09-23] MEDS ORDERED: DIGOXIN 250 MCG in SYRINGE 9 ML IV STA (23:35)
[2021-09-23] MEDS ORDERED: methylPREDNISolone 20 MG in SYRINGE 0 ML IV STA (23:37)
[2021-09-24] MEDS: METOPROLOL TARTRATE 25 MG TAB PO SCH ×5 (00:18→21:38)
[2021-09-24 00:19] LABS: Allen Test Pos (Pos); HCO3 ABG 16 mmol/L (19-24); PCO2 ABG 22 mmHg (35-46); PO2 ABG 51 mmHg (80-95); pH ABG 7.49 (7.35-7.45)
[2021-09-24] MEDS ORDERED: XOPENEX/ATROVENT 1.25mg/0.5MG NEB COMBO NEB STA (00:41)
[2021-09-24] MEDS ORDERED: IPRATROPIUM BROMIDE NEB SOLN 0.02% 2.5 ML VIAL INH STA (00:42)
[2021-09-24] MEDS ORDERED: LEVALBUTEROL 1.25MG/0.5ML NEB INH STA (00:43)
--- NOTE | 2021-09-24 07:18 | XRay Report ---
XR chest 1V portable CLINICAL HISTORY: low o2. Follow-up bilateral airspace opacities COMPARISON STUDY: 09/22/2021 TECHNIQUE: 1 view of the chest FINDINGS: Single frontal view of the chest demonstrates the heart to again be enlarged with the aorta atheroscl erotic and ectatic. Compared to the previous study, bilateral interstitial and alveolar opacities are again seen and unchanged. No new confluent alveolar opacities or air bronchograms are seen. There is no evidence for pleural effusion. There is no evidence for vascular congestion. There is no acute os seous pathology. IMPRESSION: No significant interval change in the previous study with bilateral interstitial and alve olar opacities again seen. ACT 112: Negative or not required by law. Electronically signed by: Andre Santos M.D. 09/24/2021 7:17 AM
[2021-09-24] MEDS: dilTIAZem HCL 125 MG in DEXTROSE 5% 100 ML IV SCH ×2 (09:01→18:35)
[2021-09-24] MEDS: dexAMETHasone 6 MG in SYRINGE 0 ML IV SCH (09:02)
[2021-09-24] MEDS: HEPARIN SOD 5,000 UNIT/0.5 ML VIAL SQ SCH ×2 (09:02→21:34)
[2021-09-24 09:50] LABS: Hematocrit (blood only) 38.7 % (42-52); Hemoglobin 12.8 g/dL (14.0-18.0); Mean Corpuscular Hemoglobin 30.3 pg (25-34); Mean Corpuscular Hgb Conc 33.1 g/dL (32-36); Mean Corpuscular Volume 91.5 fL (80-100); Mean Platelet Volume 10.5 fL (7.4-10.4); Platelet Count 164 K/uL (130-400); RDW Coefficient of Variation 13.3 % (11.5-14.5); RDW Standard Deviation 44.6 fL (36.4-46.3); Red Blood Count 4.23 M/uL (4.7-6.1); White Blood Count 13.39 K/uL (4.8-10.8)
[2021-09-24] MEDS: guaiFENesin 600 MG TABCR PO SCH ×2 (10:16→21:41)
[2021-09-24] MEDS: FAMOTIDINE 10 MG TABLET PO SCH ×2 (10:16→21:38)
[2021-09-24] MEDS: LOSARTAN POTASSIUM 50 MG TAB PO SCH (10:16)
[2021-09-24] MEDS: ASPIRIN 81 MG ECTAB PO SCH (10:16)
[2021-09-24] MEDS: BENZONATATE 100 MG CAPSULE PO SCH ×3 (10:16→21:37)
[2021-09-24] MEDS: DOXYCYCLINE HYCLATE 100 MG CAP PO SCH ×2 (10:16→21:52)
[2021-09-24 10:17] LABS: BUN Creatinine Ratio 37.4 (10-20); Calcium 7.9 mg/dl (8.5-10.1); Creatinine Clr Calc Pharmacy 30.8 ml/min; Est GFR (African American) 36.2 ml/min; Est GFR (Non-African American) 31.2 ml/min; Potassium 4.3 mmol/L (3.5-5.1)
[2021-09-24] MEDS ORDERED: METOPROLOL TARTRATE 1 MG/ML VIAL IV STA (10:44)
[2021-09-24] MEDS: OLANZapine 10 MG/2.1 ML SDV IM PRN (10:57)
--- NOTE | 2021-09-24 11:17 | Electrocardiogram Report ---
Test Reason : Blood Pressure : / mmHG Vent. Rate : 127 BPM Atrial Rate : 127 BPM P-R Int : 154 ms QRS Dur : 084 ms QT Int : 302 ms P-R-T Axes : 015 -13 118 degrees QTc Int : 438 ms Poor data quality, interpretation may be adversely affected Atrial fibrillation with rapid ventricular response Septal infarct , age undetermined Abnormal ECG When compared with ECG of 22-SEP-2021 07:44, Septal infarct is now Present Confirmed by Pastor Callejas ([id number]) on 09/24/2021 11:17:18 AM Referred By: REFERRED SELF Confirmed By:Pastor Callejas
[2021-09-24] MEDS ORDERED: LORazepam 0.5 MG/1 ML VIAL IV STA (13:04)
--- NOTE | 2021-09-24 13:41 | Hospitalist Progress Note ---
Date of Service September 24, 2021 Assessment & Plan (1) Ambulatory dysfunction: (2) Acute respiratory failure with hypoxia: (3) Atrial fibrillation with RVR: Plan: 86-year-old male with PMH HTN, CKD III, PAD, anophthalmos left eye, presented to ER 09/21 with complaint of recurrent falls, generalized weakness and ambulatory dysfunction. He also has been bed ridden and feeling sick since last 3 weeks. Found covid Positive in the ED. he is being managed for the following: #. Ambulatory dysfunction: #. 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 He uses walker. Admitting CXR positive for several old left rib fractures. Admitting CT head and x-ray hip/pelvis negative for any acute findings. Admitting CPK WNL Ambulatory dysfunction at baseline likely worsened with current COVID-19 infection. Fall precaution, PT/OT, likely need placement. #. COVID-19 Pneumonia: #. 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 Admitting CXR consistent with viral pneumonia, patient not vaccinated No home oxygen. At admission, SaO2 in the 80s in ED requiring 3 L nasal cannula with improvement in SaO2 to 94%. CRP, ferritin elevated Procalcitonin negative Continue dexamethasone Not a candidate for remdesivir due to duration. Currently on HFNC. Patient is currently delirious. Likely metabolic encephalopathy in setting of COVID 19 and Afib w/RVR CT head did not show any acute abnormalities Zyprexa prn. Monitor QTc Redirect as needed Difficult to do incentive spirometry due to encephalopathy Follow-up labs. #. Afib RVR Patient denies history of A. fib in the past, not on any anticoagulation in the past per patient. No history of blood clot in the past. TSH wnl. Patient became A. fib RVR at 7:23 AM 09/22/2021, heart rate in 130s to 140s. Cardiology consulted, on cardizem drip + PO metoprolol, to be started in iv heparin drip if the patient remains in AFib for 72 hours. 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 CKD (chronic kidney disease), stage III: YAA on CKD3 today Likely due to poor oral intake. Has been refusing all oral intake this morning Cr is 1.9 today. Baseline Cr: 1.6-1.7 Monitor renal functions, avoid nephrotoxic agents when possible Will give very gentle IVF for today until oral intake improves #. Hypertension: Hypertensive in ER BP stable now Hold lisinopril in view of YAA Labetalol, hydralazine as needed with holding parameter DVT Prophylaxis Heparin SQ DNR/DNI Follows with Dr Quinones for routine care Admission and Anticipated Discharge Date Admission Date: September 21, 2021 Subjective Patient seen and examined. Patient is alert and oriented to person only. Confused. Limited review of system due to mental status Patient has hand mitts as he has been trying to pull at lines. Physical Exam Constitutional: + well hydrated; no acute distress Eyes: Patch over left eye ENMT: external ear and nose normal, oropharynx normal Respiratory: On HFNC, diminished breath sounds Cardiovascular: Rate/Rhythm: + tachycardic and + irregularly irregular S1 S2 Gastrointestinal (Abdomen): normal bowel sounds, soft, nontender, no hepatosplenomegaly Musculoskeletal: No pedal edema Neurologic: Limited exam as patient was occasionally not cooperative AOx1 (person) only No insight. Spontaneously moves all extremities Results & Data Results & Data ([facility]) Vital Signs (Past 12 Hours) Vital Signs Temp Pulse Pulse Pulse Resp BP BP 09/24/21 11:30 124 H 26 H 09/24/21 10:55 139 H 123/79 09/24/21 10:49 36.6 C 140 H 22 123/79 09/24/21 09:06 36.4 C L 122 H 20 96/72 L 09/24/21 08:00 122 H 09/24/21 07:30 108 H 24 09/24/21 03:46 124 H 26 H 09/24/21 03:21 36.6 C 113 H 26 H 131/87 Pulse Ox 09/24/21 11:30 90 09/24/21 10:55 09/24/21 10:49 90 09/24/21 09:06 90 09/24/21 08:00 09/24/21 07:30 96 09/24/21 03:46 95 09/24/21 03:21 91 Laboratory Results Abnormal lab results 09/24/21 09/24/21 09/24/21 Range/Units 00:07 09:35 09:35 WBC 13.39 H (4.8-10.8) K/uL RBC 4.23 L (4.7-6.1) M/uL Hgb 12.8 L (14.0-18.0) g/dL Hct 38.7 L (42-52) % MPV 10.5 H (7.4-10.4) fL ABG pH 7.49 H (7.35-7.45) ABG pCO2 22 L (35-46) mmHg ABG pO2 51 L (80-95) mmHg ABG HCO3 16 L (19-24) mmol/L ABG O2 Saturation 87.0 L (90-95) % Chloride 114 H (98-107) mmol/L Carbon Dioxide 20 L (21-32) mmol/L BUN 71 H (6-23) mg/dl Creatinine 1.90 H (0.6-1.4) mg/dl BUN/Creatinine Ratio 37.4 H (10-20) Glucose 141 H (70-99(Fasting)) mg/dl Calcium 7.9 L (8.5-10.1) mg/dl
[2021-09-24] MEDS: D5W AND 1/2NSS 1,000 ML IV SCH (17:15)
[2021-09-25] MEDS ORDERED: LORazepam 0.25 MG/0.5 ML VIAL IV STA (01:26)
[2021-09-25] MEDS ORDERED: OLANZapine 10 MG/2.1 ML SDV IM STA (01:26)
[2021-09-25] MEDS: dilTIAZem HCL 125 MG in DEXTROSE 5% 100 ML IV SCH ×3 (02:16→20:49)
[2021-09-25] MEDS: METOPROLOL TARTRATE 25 MG TAB PO SCH ×3 (05:49→18:25)
[2021-09-25 06:27] LABS: Hematocrit (blood only) 37.7 % (42-52); Hemoglobin 12.6 g/dL (14.0-18.0); Mean Corpuscular Hemoglobin 30.4 pg (25-34); Mean Corpuscular Hgb Conc 33.4 g/dL (32-36); Mean Corpuscular Volume 90.8 fL (80-100); Mean Platelet Volume 10.5 fL (7.4-10.4); Platelet Count 116 K/uL (130-400); RDW Coefficient of Variation 13.2 % (11.5-14.5); RDW Standard Deviation 43.7 fL (36.4-46.3); Red Blood Count 4.15 M/uL (4.7-6.1); White Blood Count 13.04 K/uL (4.8-10.8)
[2021-09-25 06:48] LABS: BUN Creatinine Ratio 42.6 (10-20); C Reactive Protein 5.35 mg/dl (0-0.5); Calcium 7.6 mg/dl (8.5-10.1); Creatinine Clr Calc Pharmacy 31.1 ml/min; Est GFR (African American) 36.2 ml/min; Est GFR (Non-African American) 31.2 ml/min
[2021-09-25] MEDS: dexAMETHasone 6 MG in SYRINGE 0 ML IV SCH (08:44)
[2021-09-25] MEDS: HEPARIN SOD 5,000 UNIT/0.5 ML VIAL SQ SCH (08:47)
[2021-09-25] MEDS: BENZONATATE 100 MG CAPSULE PO SCH ×3 (10:30→20:51)
[2021-09-25] MEDS: DOXYCYCLINE HYCLATE 100 MG CAP PO SCH ×2 (10:30→20:51)
[2021-09-25] MEDS: ASPIRIN 81 MG ECTAB PO SCH (10:30)
[2021-09-25] MEDS: FAMOTIDINE 10 MG TABLET PO SCH ×2 (10:32→20:51)
[2021-09-25] MEDS: guaiFENesin 600 MG TABCR PO SCH ×2 (10:33→20:51)
[2021-09-25] MEDS: D5W AND 1/2NSS 1,000 ML IV SCH (11:34)
[2021-09-25] MEDS ORDERED: bisacodyL 10 MG SUPP PR STA (12:33)
--- NOTE | 2021-09-25 12:33 | Hospitalist Progress Note ---
Date of Service September 25, 2021 Assessment & Plan (1) Ambulatory dysfunction: (2) Acute respiratory failure with hypoxia: (3) Atrial fibrillation with RVR: Plan: 86-year-old male with PMH HTN, CKD III, PAD, anophthalmos left eye, presented to ER 09/21 with complaint of recurrent falls, generalized weakness and ambulatory dysfunction. He also has been bed ridden and feeling sick since last 3 weeks. Found covid Positive in the ED. he is being managed for the following: #. COVID-19 Pneumonia: #. 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 Admitting CXR consistent with viral pneumonia, patient not vaccinated No home oxygen. At admission, SaO2 in the 80s in ED requiring 3 L nasal cannula with improvement in SaO2 to 94%. CRP, ferritin elevated Procalcitonin negative Continue dexamethasone Not a candidate for remdesivir due to duration. Currently on HFNC. Patient is delirious. Likely metabolic encephalopathy in setting of COVID 19 and Afib w/RVR Son reports patient has neurocognitive impairment CT head did not show any acute abnormalities Zyprexa prn. Monitor QTc Redirect as needed. Avoid BZD as much as possible Difficult to do incentive spirometry due to encephalopathy Follow-up labs. CRP still elevated at 5 but improved from 13 on 09/21/21 #. Ambulatory dysfunction: #. 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 He uses walker. Admitting CXR positive for several old left rib fractures. Admitting CT head and x-ray hip/pelvis negative for any acute findings. Admitting CPK WNL Ambulatory dysfunction at baseline likely worsened with current COVID-19 infection. Fall precaution, PT/OT, likely need placement. #. Afib RVR Per previous provider, Patient denied history of A. fib in the past, not on any anticoagulation in the past. No history of blood clot in the past. TSH wnl. Patient became A. fib RVR at 7:23 AM 09/22/2021, heart rate in 130s to 140s. Cardiology consulted, on cardizem drip + PO metoprolol 09/22 ECHO: EF 60-65%, diastolic dysfxn, severe concentric LVH Occasionally refuses po metoprolol Remains on cardizem drip IV metoprolol prn Start hep gtt as he has been in sustained Afib for >72h #. CKD (chronic kidney disease), stage III: YAA on CKD3 today Likely due to poor oral intake. Has been refusing all oral intake this morning Cr remains at 1.9 today. Baseline Cr: 1.6-1.7 Monitor renal functions, avoid nephrotoxic agents when possible Continue IVF for today until oral intake improves #. Hypertension: Hypertensive in ER BP stable now Continue to hold lisinopril in view of YAA Labetalol, hydralazine as needed with holding parameter DVT Prophylaxis Heparin drip as above DNR/DNI Follows with Dr Quinones for routine care Dulcolax [place] Son called and updated Admission and Anticipated Discharge Date Admission Date: September 21, 2021 Subjective Patient seen and examined. Patient is alert but confused Mumbles, mentioned something about abdominal pain but will not elucidate when asked about this He did not answer to any questions about ROS hence this is limited Per RN, patient has not had a BM. He also refuses meds or pockets them in his mouth, refusing to swallow. Occasionally refuses meals Physical Exam Constitutional: + well hydrated; no acute distress Eyes: Enucleated left eye ENMT: external ear and nose normal, oropharynx normal Respiratory: On HFNC Diminished breath sounds Cardiovascular: Rate/Rhythm: + tachycardic and + irregularly irregular S1 S2 Gastrointestinal (Abdomen): normal bowel sounds, soft, nontender, no hepatosplenomegaly Musculoskeletal: No pedal edema Neurologic: Confused. Not cooperative Moves all extremities spontaneously Genitourinary: Garcia in situ Results & Data Results & Data ([facility]) Vital Signs (Past 12 Hours) Vital Signs Temp Pulse Resp BP BP Pulse Ox 09/25/21 11:33 118 H 24 89 L 09/25/21 08:00 37.1 C 122 H 20 132/86 90 09/25/21 07:42 123 H 26 H 91 09/25/21 04:34 36.5 C 111 H 24 139/87 90 09/25/21 03:13 91 H 28 H 92 Laboratory Results Abnormal lab results 09/25/21 09/25/21 Range/Units 06:03 06:03 WBC 13.04 H (4.8-10.8) K/uL RBC 4.15 L (4.7-6.1) M/uL Hgb 12.6 L (14.0-18.0) g/dL Hct 37.7 L (42-52) % Plt Count 116 L (130-400) K/uL MPV 10.5 H (7.4-10.4) fL Chloride 116 H (98-107) mmol/L BUN 81 H (6-23) mg/dl Creatinine 1.90 H (0.6-1.4) mg/dl BUN/Creatinine Ratio 42.6 H (10-20) Glucose 195 H (70-99(Fasting)) mg/dl Calcium 7.6 L (8.5-10.1) mg/dl C-Reactive Protein 5.35 H (0-0.5) mg/dl
[2021-09-25] MEDS ORDERED: Heparin IV Adult Wt-Based Low-Dose *NO* Bolus Protocol IV SCH (12:45)
[2021-09-25 14:44] LABS: Partial Thromboplastin Ratio 1.3; Partial Thromboplastin Time 33.6 Seconds (21.0-31.0)
[2021-09-25] MEDS: METOPROLOL TARTRATE 1 MG/ML VIAL IV PRN (14:50)
--- NOTE | 2021-09-25 16:10 | Cardiology Progress Note ---
Date of Service September 25, 2021 Assessment & Plan (1) Atrial fibrillation with RVR: (2) Acute respiratory failure with hypoxia: (3) Ambulatory dysfunction: (4) COVID-19: (5) CKD (chronic kidney disease), stage III: Plan: Unvaccinated 86-year-old male presents with Covid 19 associated pneumonia Lapsed into atrial fibrillation after admission Rapid ventricular response despite receiving multiple boluses of IV metoprolol. Consideration may be given to amiodarone however, he has received Haldol this admission which is concerning for QT prolongation with amiodarone and given his active COVID-19 associated pneumonia I would also be concerned about the effects on his lungs. So for now we will attempt rate control with IV Cardizem bolus and drip. Oral metoprolol may be continued as well. Given that the patient is refusing medications IV metoprolol may be necessary Heparin to be started today With reported history of the amatory dysfunction and multiple falls the patient does not appear to be a long-term anticoagulation candidate, will need to revisit this with family prior to discharge. Admission and Anticipated Discharge Date Admission Date: September 21, 2021 Subjective Chart reviewed and case discussed with primary team. Results & Data ([facility]) Vital Signs (Past 12 Hours) Vital Signs Temp Pulse Pulse Resp BP BP BP 09/25/21 14:59 128 H 24 09/25/21 14:50 151 H 138/90 09/25/21 11:33 118 H 24 09/25/21 11:04 36.5 C 125 H 20 149/91 H 09/25/21 08:00 37.1 C 122 H 20 132/86 09/25/21 07:42 123 H 26 H 09/25/21 04:34 36.5 C 111 H 24 139/87 Pulse Ox 09/25/21 14:59 90 09/25/21 14:50 09/25/21 11:33 89 L 09/25/21 11:04 91 09/25/21 08:00 90 09/25/21 07:42 91 09/25/21 04:34 90
[2021-09-25] MEDS: HEPARIN SODIUM/DEXTROSE 25,000 UNITS/500 ML BAG IV SCH (16:35)
[2021-09-25] MEDS: ACETAMINOPHEN 1000 MG/100 ML IV IV PRN (20:50)
[2021-09-25 23:12] LABS: Partial Thromboplastin Ratio 3.2
[2021-09-25 23:31] LABS: Partial Thromboplastin Time 85.1 Seconds (21.0-31.0)
[2021-09-26] MEDS: METOPROLOL TARTRATE 25 MG TAB PO SCH ×4 (01:03→17:26)
[2021-09-26] MEDS: METOPROLOL TARTRATE 1 MG/ML VIAL IV PRN ×4 (01:04→22:08)
[2021-09-26] MEDS: OLANZapine 10 MG/2.1 ML SDV IM PRN ×3 (02:12→20:07)
[2021-09-26] MEDS: dilTIAZem HCL 125 MG in DEXTROSE 5% 100 ML IV SCH ×3 (05:07→22:07)
[2021-09-26] MEDS: D5W AND 1/2NSS 1,000 ML IV SCH ×2 (05:08→08:20)
[2021-09-26 06:20] LABS: Hematocrit (blood only) 37.8 % (42-52); Hemoglobin 12.7 g/dL (14.0-18.0); Mean Corpuscular Hemoglobin 30.5 pg (25-34); Mean Corpuscular Hgb Conc 33.6 g/dL (32-36); Mean Corpuscular Volume 90.9 fL (80-100); Mean Platelet Volume 11.4 fL (7.4-10.4); Platelet Count 108 K/uL (130-400); RDW Coefficient of Variation 13.4 % (11.5-14.5); RDW Standard Deviation 44.6 fL (36.4-46.3); Red Blood Count 4.16 M/uL (4.7-6.1); White Blood Count 14.34 K/uL (4.8-10.8)
[2021-09-26 06:53] LABS: Partial Thromboplastin Ratio 2.5
[2021-09-26 06:56] LABS: Partial Thromboplastin Time 66.9 Seconds (21.0-31.0)
[2021-09-26 07:26] LABS: BUN Creatinine Ratio 47.3 (10-20); C Reactive Protein 4.59 mg/dl (0-0.5); Calcium 7.7 mg/dl (8.5-10.1); Creatinine Clr Calc Pharmacy 32.5 ml/min; Est GFR (African American) 38.1 ml/min; Est GFR (Non-African American) 32.9 ml/min
[2021-09-26] MEDS: dexAMETHasone 6 MG in SYRINGE 0 ML IV SCH (08:21)
[2021-09-26] MEDS: BENZONATATE 100 MG CAPSULE PO SCH ×3 (10:12→21:54)
[2021-09-26] MEDS: ASPIRIN 81 MG ECTAB PO SCH (10:12)
[2021-09-26] MEDS: DOXYCYCLINE HYCLATE 100 MG CAP PO SCH (10:12)
[2021-09-26] MEDS: guaiFENesin 600 MG TABCR PO SCH ×2 (10:13→21:55)
[2021-09-26] MEDS: FAMOTIDINE 10 MG TABLET PO SCH ×2 (10:13→21:55)
--- NOTE | 2021-09-26 11:15 | Hospitalist Progress Note ---
Date of Service September 26, 2021 Assessment & Plan (1) Ambulatory dysfunction: (2) Acute respiratory failure with hypoxia: (3) Atrial fibrillation with RVR: Plan: 86-year-old male with PMH HTN, CKD III, PAD, anophthalmos left eye, presented to ER 09/21 with complaint of recurrent falls, generalized weakness and ambulatory dysfunction. He also has been bed ridden and feeling sick since last 3 weeks. Found covid Positive in the ED. he is being managed for the following: #. COVID-19 Pneumonia: #. 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 And shortness of breath past several days [employer]. Admitting CXR consistent with viral pneumonia, patient not vaccinated No home oxygen. At admission, SaO2 in the 80s in ED requiring 3 L nasal cannula with improvement in SaO2 to 94%. Procalcitonin negative Continue dexamethasone Not a candidate for remdesivir due to duration. Remains on HFNC. Metabolic encephalopathy in setting of COVID 19 and Afib w/RVR Son reports patient has neurocognitive impairment CT head did not show any acute abnormalities Zyprexa prn. Monitor QTc Redirect as needed. Avoid BZD as much as possible Difficult to do incentive spirometry due to encephalopathy Follow-up labs. CRP continues to improve 13-->5.35-->4.59 #. Ambulatory dysfunction: #. 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 He uses walker. Admitting CXR positive for several old left rib fractures. Admitting CT head and x-ray hip/pelvis negative for any acute findings. Admitting CPK WNL Ambulatory dysfunction at baseline likely worsened with current COVID-19 infection. Fall precaution, PT/OT, likely need placement. #. Afib RVR Per previous provider, Patient denied history of A. fib in the past, not on any anticoagulation in the past. No history of blood clot in the past. TSH wnl. Patient became A. fib RVR at 7:23 AM 09/22/2021, heart rate in 130s to 140s. 09/22 ECHO: EF 60-65%, diastolic dysfxn, severe concentric LVH Afib w/RVR has been tough to control especially with patient refusing oral meds Remains on cardizem drip IV metoprolol prn On hep gtt. 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 CKD (chronic kidney disease), stage III: YAA on CKD3 Likely due to poor oral intake. Has been refusing all oral intake this morning Cr went up to 1.9. Currently 1.82 today. Baseline Cr: 1.6-1.7 Monitor renal functions, avoid nephrotoxic agents when possible Continue IVF for today until oral intake improves #. Hypertension: Hypertensive in ER BP stable now Continue to hold lisinopril in view of YAA On hydralazine as needed with holding parameter DVT Prophylaxis Heparin drip as above DNR/DNI Follows with Dr Quinones for routine care Son called and updated Patient's prognosis is guarded Admission and Anticipated Discharge Date Admission Date: September 21, 2021 Subjective Patient seen and examined. Patient is alert oriented to person only ROS limited as patient occasionally does not respond. Did acknowledge cough and sore throat. Able to follow simple commands such as raise hands and legs Occasionally confused He also occasionally refuses meds/meals or pockets them in his mouth, refusing to swallow. Physical Exam Constitutional: + well hydrated; no acute distress Eyes: Left anopthalmos ENMT: external ear and nose normal, oropharynx normal Respiratory: On HFNC Dminished breath sounds Cardiovascular: Rate/Rhythm: + tachycardic and + irregularly irregular S1 S2 Gastrointestinal (Abdomen): normal bowel sounds, soft, nontender, no hepatosplenomegaly Neurologic: Limited as above Oriented to person only Able to follow simple commands such as raise hands and legs Genitourinary: Garcia in situ Results & Data Results & Data ([facility]) Vital Signs (Past 12 Hours) Vital Signs Temp Pulse Pulse Pulse Resp BP BP 09/26/21 10:59 138 H 26 H 09/26/21 10:51 37.1 C 120 H 24 127/93 09/26/21 08:19 150 H 124/94 09/26/21 07:20 36.5 C 109 H 121 H 21 129/76 09/26/21 04:03 100 H 29 H 128/96 09/26/21 03:15 130 H 20 09/26/21 01:04 128 H 09/25/21 23:20 124 H 22 Pulse Ox 09/26/21 10:59 90 09/26/21 10:51 90 09/26/21 08:19 09/26/21 07:20 91 09/26/21 04:03 92 09/26/21 03:15 91 09/26/21 01:04 09/25/21 23:20 91 Laboratory Results Abnormal lab results 09/25/21 09/25/21 09/26/21 Range/Units 13:46 22:29 05:51 WBC (4.8-10.8) K/uL RBC (4.7-6.1) M/uL Hgb (14.0-18.0) g/dL Hct (42-52) % Plt Count (130-400) K/uL MPV (7.4-10.4) fL APTT 33.6 H 85.1 H* (21.0-31.0) Seconds Sodium 146 H (136-145) mmol/L Chloride 117 H (98-107) mmol/L BUN 86 H (6-23) mg/dl Creatinine 1.82 H (0.6-1.4) mg/dl BUN/Creatinine Ratio 47.3 H (10-20) Glucose 171 H (70-99(Fasting)) mg/dl Calcium 7.7 L (8.5-10.1) mg/dl C-Reactive Protein 4.59 H (0-0.5) mg/dl 09/26/21 09/26/21 Range/Units 05:51 05:51 WBC 14.34 H (4.8-10.8) K/uL RBC 4.16 L (4.7-6.1) M/uL Hgb 12.7 L (14.0-18.0) g/dL Hct 37.8 L (42-52) % Plt Count 108 L (130-400) K/uL MPV 11.4 H (7.4-10.4) fL APTT 66.9 H* (21.0-31.0) Seconds Sodium (136-145) mmol/L Chloride (98-107) mmol/L BUN (6-23) mg/dl Creatinine (0.6-1.4) mg/dl BUN/Creatinine Ratio (10-20) Glucose (70-99(Fasting)) mg/dl Calcium (8.5-10.1) mg/dl C-Reactive Protein (0-0.5) mg/dl
--- NOTE | 2021-09-26 11:17 | Cardiology Progress Note ---
Date of Service September 26, 2021 Assessment & Plan (1) Atrial fibrillation with RVR: (2) Acute respiratory failure with hypoxia: (3) Ambulatory dysfunction: (4) COVID-19: (5) CKD (chronic kidney disease), stage III: Plan: Unvaccinated 86-year-old male presents with Covid 19 associated pneumonia Lapsed into atrial fibrillation after admission Rapid ventricular response despite receiving multiple boluses of IV metoprolol. Consideration may be given to amiodarone however, he has received Haldol this admission which is concerning for QT prolongation with amiodarone and given his active COVID-19 associated pneumonia I would also be concerned about the effects on his lungs. So for now we will attempt rate control with IV Cardizem bolus and drip. Oral metoprolol may be continued as well. Given that the patient is refusing medications IV metoprolol may be necessary On heparin With reported history of the amatory dysfunction and multiple falls the patient does not appear to be a long-term anticoagulation candidate, will need to revisit this with family prior to discharge. Admission and Anticipated Discharge Date Admission Date: September 21, 2021 Subjective Chart reviewed and case discussed with primary team. Results & Data ([facility]) Vital Signs (Past 12 Hours) Vital Signs Temp Pulse Pulse Pulse Resp BP BP 09/26/21 10:59 138 H 26 H 09/26/21 10:51 37.1 C 120 H 24 127/93 09/26/21 08:19 150 H 124/94 09/26/21 07:20 36.5 C 109 H 121 H 21 129/76 09/26/21 04:03 100 H 29 H 128/96 09/26/21 03:15 130 H 20 09/26/21 01:04 128 H 09/25/21 23:20 124 H 22 Pulse Ox 09/26/21 10:59 90 09/26/21 10:51 90 09/26/21 08:19 09/26/21 07:20 91 09/26/21 04:03 92 09/26/21 03:15 91 09/26/21 01:04 09/25/21 23:20 91
[2021-09-26] MEDS: ACETAMINOPHEN 1000 MG/100 ML IV IV PRN (12:33)
[2021-09-26 15:40] LABS: Partial Thromboplastin Time 52.5 Seconds (21.0-31.0)
--- NOTE | 2021-09-26 15:44 | XRay Report ---
SINGLE VIEW CHEST CLINICAL HISTORY: Covid pneumonia. FINDINGS: An AP, portable, upright chest radiograph is compared to study dated 09/23/2021. The examinat ion is degraded by portable technique and patient rotation. The heart is enlarged. Tortuosity/dilatat ion of the thoracic aorta is unchanged as compared to prior studies. Multifocal airspace consolidatio n is again seen throughout both lungs. This is similar to previous. No large pleural effusion or pneu mothorax is identified. The skeletal structures are osteopenic. There are healed left-sided rib fract ures. IMPRESSION: 1. Multifocal airspace consolidation has not appreciably changed as compared to 09/23/2021. 2. Cardiomegaly with dilatation/tortuosity of the thoracic aorta is similar to previous. ACT 112: Negative or not required by law. Electronically signed by: Erasmo Man M.D. 09/26/2021 3:43 PM
[2021-09-26] MEDS: HEPARIN SODIUM/DEXTROSE 25,000 UNITS/500 ML BAG IV SCH ×2 (16:36→22:09)
[2021-09-27] MEDS: D5W AND 1/2NSS 1,000 ML IV SCH ×2 (00:50→20:04)
[2021-09-27] MEDS: OLANZapine 10 MG/2.1 ML SDV IM PRN ×5 (01:30→20:14)
[2021-09-27] MEDS: dilTIAZem HCL 125 MG in DEXTROSE 5% 100 ML IV SCH ×3 (05:49→21:27)
[2021-09-27] MEDS: METOPROLOL TARTRATE 1 MG/ML VIAL IV PRN (05:55)
[2021-09-27] MEDS: METOPROLOL TARTRATE 25 MG TAB PO SCH ×2 (05:56)
[2021-09-27 07:16] LABS: Hematocrit (blood only) 35.2 % (42-52); Hemoglobin 11.5 g/dL (14.0-18.0); Mean Corpuscular Hgb Conc 32.7 g/dL (32-36); Mean Corpuscular Volume 91.9 fL (80-100); RDW Coefficient of Variation 13.4 % (11.5-14.5); RDW Standard Deviation 44.6 fL (36.4-46.3); Red Blood Count 3.83 M/uL (4.7-6.1); White Blood Count 14.51 K/uL (4.8-10.8)
[2021-09-27 07:35] LABS: Mean Platelet Volume 11.4 fL (7.4-10.4); Platelet Count 93 K/uL (130-400); Platelet Estimate Decreased (Normal)
[2021-09-27 07:41] LABS: BUN Creatinine Ratio 46.6 (10-20); C Reactive Protein 4.9 mg/dl (0-0.5); Calcium 7.4 mg/dl (8.5-10.1); Creatinine Clr Calc Pharmacy 34.1 ml/min; Est GFR (African American) 39.7 ml/min; Est GFR (Non-African American) 34.3 ml/min; Potassium 4.3 mmol/L (3.5-5.1)
[2021-09-27 07:43] LABS: Partial Thromboplastin Ratio 1.9
[2021-09-27 07:44] LABS: Partial Thromboplastin Time 48.7 Seconds (21.0-31.0)
[2021-09-27] MEDS: FAMOTIDINE 10 MG TABLET PO SCH ×2 (08:21→20:11)
[2021-09-27] MEDS: guaiFENesin 600 MG TABCR PO SCH ×2 (08:21→20:12)
[2021-09-27] MEDS: ASPIRIN 81 MG ECTAB PO SCH (08:21)
[2021-09-27] MEDS: BENZONATATE 100 MG CAPSULE PO SCH ×3 (08:21→20:11)
[2021-09-27] MEDS: dexAMETHasone 6 MG in SYRINGE 0 ML IV SCH (08:34)
--- NOTE | 2021-09-27 10:12 | Hospitalist Progress Note ---
Date of Service September 27, 2021 Assessment & Plan (1) Ambulatory dysfunction: (2) Acute respiratory failure with hypoxia: (3) Atrial fibrillation with RVR: Plan: 86-year-old male with PMH HTN, CKD III, PAD, anophthalmos left eye, presented to ER 09/21 with complaint of recurrent falls, generalized weakness and ambulatory dysfunction. He also has been bed ridden and feeling sick since last 3 weeks. Found covid Positive in the ED. he is being managed for the following: #. COVID-19 Pneumonia: #. 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 Admitting CXR consistent with viral pneumonia, patient not vaccinated No home oxygen. At admission, SaO2 in the 80s in ED requiring 3 L nasal cannula with improvement in SaO2 to 94%. Procalcitonin negative Continue dexamethasone Not a candidate for remdesivir due to duration. Was on HFNC. Now on BIPAP CRP 13-->5.35-->4.59-->4.9 Metabolic encephalopathy in setting of COVID 19 and Afib w/RVR Son reports patient has neurocognitive impairment CT head did not show any acute abnormalities Zyprexa prn. Monitor QTc Redirect as needed. Avoid BZD as much as possible #. Ambulatory dysfunction: #. 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 He uses walker. Admitting CXR positive for several old left rib fractures. Admitting CT head and x-ray hip/pelvis negative for any acute findings. Admitting CPK WNL Ambulatory dysfunction at baseline likely worsened with current COVID-19 infection. Fall precaution, PT/OT, likely need placement. #. Afib RVR Per previous provider, Patient denied history of A. fib in the past, not on any anticoagulation in the past. No history of blood clot in the past. TSH wnl. Patient became A. fib RVR at 7:23 AM 09/22/2021, heart rate in 130s to 140s. 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 Not a good candidate for meterman AC due to h/o and frequent falls #. CKD (chronic kidney disease), stage III: YAA on CKD3 Likely due to poor oral intake. Was refusing oral meds. He has been pocketing food and pills sometimes even before admission per son Cr went up to 1.9. Currently 1.76 today. Baseline Cr: 1.6-1.7 Monitor renal functions, avoid nephrotoxic agents when possible Continue maintenance IVF since patient is NPO #. Hypertension: Hypertensive in ER BP stable now Continue to hold lisinopril in view of YAA On hydralazine as needed with holding parameter DVT Prophylaxis Heparin drip as above DNR/DNI Follows with Dr Quinones for routine care Son called and updated Poor prognosis at this time. Son will like to visit to help family with ongoing GOC Discussed with RN. Arrangements being made Admission and Anticipated Discharge Date Admission Date: September 21, 2021 Subjective Patient seen and examined Currently on BIPAP Awake, alert. Has some confusion. Occasionally follows simple commands ROS limited due to BIPAP and mental status Physical Exam Constitutional: + acute distress (Tachypneic) and + well hydrated Eyes: Left anophthalmos ENMT: On BIPAP Respiratory: Tachypneic. On BIPAP. Diminished breath sounds Cardiovascular: Rate/Rhythm: + tachycardic and + irregularly irregular S1 S2 Gastrointestinal (Abdomen): normal bowel sounds, soft, nontender, no hepatosplenomegaly Musculoskeletal: Hand mitts on (as patient pulls on lines) Neurologic: Limited exam Awake, alert, confused Genitourinary: Garcia in situ Results & Data Results & Data ([facility] [place]) Vital Signs (Past 12 Hours) Vital Signs Temp Pulse Pulse Pulse Resp BP BP 09/27/21 08:00 109 H 09/27/21 07:27 36.0 C L 113 H 30 H 123/82 09/27/21 07:14 119 H 31 H 09/27/21 05:55 145 H 111/94 09/27/21 04:09 36.0 C L 150 H 22 148/86 H 09/27/21 03:22 142 H 30 H 09/27/21 02:10 120 H 30 H 131/83 09/26/21 23:57 130 H 32 H 09/26/21 23:00 143 H 09/26/21 22:45 36.6 C 103 H 28 H 128/87 Pulse Ox 09/27/21 08:00 09/27/21 07:27 90 09/27/21 07:14 92 09/27/21 05:55 09/27/21 04:09 92 09/27/21 03:22 92 09/27/21 02:10 92 09/26/21 23:57 94 09/26/21 23:00 09/26/21 22:45 92 Laboratory Results Abnormal lab results 09/26/21 09/27/21 09/27/21 Range/Units 14:25 06:31 06:31 WBC 14.51 H (4.8-10.8) K/uL RBC 3.83 L (4.7-6.1) M/uL Hgb 11.5 L (14.0-18.0) g/dL Hct 35.2 L (42-52) % Plt Count 93 L (130-400) K/uL MPV 11.4 H (7.4-10.4) fL Platelet Estimate Decreased L (Normal) APTT 52.5 H* 48.7 H* (21.0-31.0) Seconds Chloride (98-107) mmol/L BUN (6-23) mg/dl Creatinine (0.6-1.4) mg/dl BUN/Creatinine Ratio (10-20) Glucose (70-99(Fasting)) mg/dl Calcium (8.5-10.1) mg/dl C-Reactive Protein (0-0.5) mg/dl 09/27/21 Range/Units 06:31 WBC (4.8-10.8) K/uL RBC (4.7-6.1) M/uL Hgb (14.0-18.0) g/dL Hct (42-52) % Plt Count (130-400) K/uL MPV (7.4-10.4) fL Platelet Estimate (Normal) APTT (21.0-31.0) Seconds Chloride 117 H (98-107) mmol/L BUN 82 H (6-23) mg/dl Creatinine 1.76 H (0.6-1.4) mg/dl BUN/Creatinine Ratio 46.6 H (10-20) Glucose 170 H (70-99(Fasting)) mg/dl Calcium 7.4 L (8.5-10.1) mg/dl C-Reactive Protein 4.90 H (0-0.5) mg/dl
--- NOTE | 2021-09-27 11:11 | Cardiology Progress Note ---
Date of Service September 27, 2021 Assessment & Plan (1) Atrial fibrillation with RVR: (2) Acute respiratory failure with hypoxia: (3) Ambulatory dysfunction: (4) COVID-19: (5) CKD (chronic kidney disease), stage III: Plan: The patient continues to have high heart rates due to his atrial fibrillation. At this point I would add IV metoprolol to his diltiazem infusion. Admission and Anticipated Discharge Date Admission Date: September 21, 2021 Results & Data ([facility]) Vital Signs (Past 12 Hours) Vital Signs Temp Pulse Pulse Pulse Resp BP BP 09/27/21 10:15 135 H 33 H 09/27/21 08:00 109 H 09/27/21 07:27 36.0 C L 113 H 30 H 123/82 09/27/21 07:14 119 H 31 H 09/27/21 05:55 145 H 111/94 09/27/21 04:09 36.0 C L 150 H 22 148/86 H 09/27/21 03:22 142 H 30 H 09/27/21 02:10 120 H 30 H 131/83 09/26/21 23:57 130 H 32 H Pulse Ox 09/27/21 10:15 94 09/27/21 08:00 09/27/21 07:27 90 09/27/21 07:14 92 09/27/21 05:55 09/27/21 04:09 92 09/27/21 03:22 92 09/27/21 02:10 92 09/26/21 23:57 94
[2021-09-27] MEDS: METOPROLOL TARTRATE 1 MG/ML VIAL IV SCH ×3 (11:47→20:03)
[2021-09-28] MEDS: METOPROLOL TARTRATE 1 MG/ML VIAL IV SCH ×6 (00:33→19:46)
[2021-09-28 06:09] LABS: Hematocrit (blood only) 35.8 % (42-52); Hemoglobin 11.7 g/dL (14.0-18.0); Mean Corpuscular Hemoglobin 30.5 pg (25-34); Mean Corpuscular Hgb Conc 32.7 g/dL (32-36); Mean Corpuscular Volume 93.2 fL (80-100); Mean Platelet Volume 11.4 fL (7.4-10.4); Platelet Count 130 K/uL (130-400); RDW Coefficient of Variation 13.7 % (11.5-14.5); RDW Standard Deviation 46.4 fL (36.4-46.3); Red Blood Count 3.84 M/uL (4.7-6.1); White Blood Count 15.24 K/uL (4.8-10.8)
[2021-09-28 06:33] LABS: Partial Thromboplastin Ratio 1.9
[2021-09-28 06:34] LABS: BUN Creatinine Ratio 50.3 (10-20); Calcium 7.5 mg/dl (8.5-10.1); Creatinine Clr Calc Pharmacy 37.2 ml/min; Est GFR (African American) 44.2 ml/min; Est GFR (Non-African American) 38.2 ml/min; Potassium 4.7 mmol/L (3.5-5.1)
[2021-09-28 06:50] LABS: Partial Thromboplastin Time 49.8 Seconds (21.0-31.0)
[2021-09-28] MEDS: dilTIAZem HCL 125 MG in DEXTROSE 5% 100 ML IV SCH ×3 (06:51→22:51)
[2021-09-28] MEDS: ASPIRIN 81 MG ECTAB PO SCH (08:05)
[2021-09-28] MEDS: FAMOTIDINE 10 MG TABLET PO SCH ×2 (08:06→20:05)
[2021-09-28] MEDS: guaiFENesin 600 MG TABCR PO SCH ×2 (08:06→20:06)
[2021-09-28] MEDS: BENZONATATE 100 MG CAPSULE PO SCH (08:06)
[2021-09-28] MEDS: dexAMETHasone 6 MG in SYRINGE 0 ML IV SCH (08:07)
[2021-09-28] MEDS: OLANZapine 10 MG/2.1 ML SDV IM PRN ×3 (08:10→22:44)
[2021-09-28] MEDS: HEPARIN SODIUM/DEXTROSE 25,000 UNITS/500 ML BAG IV SCH (08:21)
--- NOTE | 2021-09-28 10:04 | Hospitalist Progress Note ---
Date of Service September 28, 2021 Assessment & Plan (1) Ambulatory dysfunction: (2) Acute respiratory failure with hypoxia: (3) Atrial fibrillation with RVR: Plan: 86-year-old male with PMH HTN, CKD III, PAD, anophthalmos left eye, presented to ER 09/21 with complaint of recurrent falls, generalized weakness and ambulatory dysfunction. He also has been bed ridden and feeling sick since last 3 weeks. Found covid Positive in the ED. he is being managed for the following: #. COVID-19 Pneumonia: #. 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 And shortness of breath past several days CARDIOVASCULAR RN. Admitting CXR consistent with viral pneumonia, patient not vaccinated No home oxygen. At admission, SaO2 in the 80s in ED requiring 3 L nasal cannula with improvement in SaO2 to 94%. Procalcitonin negative Currently on dexamethasone Not a candidate for remdesivir due to duration. Was on HFNC. Now on BIPAP CRP 13-->5.35-->4.59-->4.9 Metabolic encephalopathy in setting of COVID 19 and Afib w/RVR Son reports patient has neurocognitive impairment CT head did not show any acute abnormalities Zyprexa prn. Monitor QTc Redirect as needed. Avoid BZD as much as possible #. Ambulatory dysfunction: #. 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 He uses walker. Admitting CXR positive for several old left rib fractures. Admitting CT head and x-ray hip/pelvis negative for any acute findings. Admitting CPK WNL Ambulatory dysfunction at baseline likely worsened with current COVID-19 infection. t. #. Afib RVR Per previous provider, Patient denied history of A. fib in the past, not on any anticoagulation in the past. No history of blood clot in the past. TSH wnl. Patient became A. fib RVR at 7:23 AM 09/22/2021, heart rate in 130s to 140s. 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 Not a good candidate for fdc AC due to h/o and frequent falls #. CKD (chronic kidney disease), stage III: YAA on CKD3 Likely due to poor oral intake. Was refusing oral meds. He has been pocketing food and pills sometimes even before admission per son Cr went up to 1.9. Currently 1.61 today. Baseline Cr: 1.6-1.7 Monitor renal functions, avoid nephrotoxic agents when possible Continue maintenance IVF since patient is NPO #. Hypertension: Hypertensive in ER BP stable now Continue to hold lisinopril in view of YAA On hydralazine as needed with holding parameter DVT Prophylaxis Heparin drip as above DNR/DNI Follows with Dr Quinones for routine care Prognosis is poor Patient is clinically not improving I had GOC discussion with son He was able to visit him yesterday. He reinforced family's decision to maintain DNR/DNI. He stated family may decide on comfort care but will like to have patient's visit tomorrow to help them finalize plans on GOC of care. I answered all questions Admission and Anticipated Discharge Date Admission Date: September 21, 2021 Subjective Patient seen and examined Currently on BIPAP Drowsy but arousable. ROS limited due to BIPAP and mental status Physical Exam Constitutional: + acute distress (Tachypneic) and + well hydrated Eyes: Left anophthalmos ENMT: external ear and nose normal, oropharynx normal Respiratory: Tachypneic, on BIPAP, diminished breath sounds b/l Cardiovascular: Rate/Rhythm: + tachycardic and + irregularly irregular S1 S2 Gastrointestinal (Abdomen): normal bowel sounds, soft, nontender, no hepatosplenomegaly Neurologic: Limited exam Drowsy but arousable and confused Genitourinary: Garcia in situ Results & Data Results & Data ([facility]) Vital Signs (Past 12 Hours) Vital Signs Temp Pulse Pulse Pulse Resp BP BP 09/28/21 07:33 36.4 C L 127 H 24 116/92 09/28/21 06:57 134 H 24 09/28/21 04:52 132 H 122/86 09/28/21 04:18 130 H 122/86 09/28/21 03:56 36.7 C 135 H 21 103/69 09/28/21 03:15 110 H 26 H 09/28/21 00:33 124 H 133/73 09/27/21 23:32 36.5 C 137 H 19 106/88 09/27/21 23:15 126 H 29 H 09/27/21 22:18 130 H Pulse Ox 09/28/21 07:33 88 L 09/28/21 06:57 89 L 09/28/21 04:52 09/28/21 04:18 09/28/21 03:56 91 09/28/21 03:15 89 L 09/28/21 00:33 09/27/21 23:32 88 L 09/27/21 23:15 90 09/27/21 22:18 Laboratory Results Abnormal lab results 09/28/21 09/28/21 09/28/21 Range/Units 05:55 05:55 05:55 WBC 15.24 H (4.8-10.8) K/uL RBC 3.84 L (4.7-6.1) M/uL Hgb 11.7 L (14.0-18.0) g/dL Hct 35.8 L (42-52) % RDW Std Deviation 46.4 H (36.4-46.3) fL MPV 11.4 H (7.4-10.4) fL APTT 49.8 H* (21.0-31.0) Seconds Chloride 117 H (98-107) mmol/L BUN 81 H (6-23) mg/dl Creatinine 1.61 H (0.6-1.4) mg/dl BUN/Creatinine Ratio 50.3 H (10-20) Glucose 171 H (70-99(Fasting)) mg/dl Calcium 7.5 L (8.5-10.1) mg/dl
[2021-09-28] MEDS: D5W AND 1/2NSS 1,000 ML IV SCH (11:38)
[2021-09-28] MEDS: MoRPHine SULFATE 2 MG/ML CARP IV PRN (23:31)
[2021-09-29] MEDS: METOPROLOL TARTRATE 1 MG/ML VIAL IV SCH ×4 (00:53→12:29)
[2021-09-29] MEDS ORDERED: MoRPHine SULFATE 2 MG/ML CARP IV STA (00:59)
[2021-09-29] MEDS: MoRPHine SULFATE 2 MG/ML CARP IV PRN ×2 (04:11→09:43)
[2021-09-29] MEDS: D5W AND 1/2NSS 1,000 ML IV SCH (04:12)
[2021-09-29] MEDS ORDERED: LORazepam 0.25 MG/0.5 ML VIAL IV STA (05:31)
[2021-09-29 06:31] LABS: Partial Thromboplastin Ratio 1.6; Partial Thromboplastin Time 42.4 Seconds (21.0-31.0)
[2021-09-29 06:37] LABS: BUN Creatinine Ratio 47.4 (10-20); Calcium 7.2 mg/dl (8.5-10.1); Creatinine Clr Calc Pharmacy 34.3 ml/min; Est GFR (Non-African American) 34.5 ml/min; Potassium 4.9 mmol/L (3.5-5.1)
[2021-09-29 06:50] LABS: Hematocrit (blood only) 35.8 % (42-52); Hemoglobin 11.6 g/dL (14.0-18.0); Mean Corpuscular Hemoglobin 30.1 pg (25-34); Mean Corpuscular Hgb Conc 32.4 g/dL (32-36); Mean Corpuscular Volume 92.7 fL (80-100); Mean Platelet Volume 12.6 fL (7.4-10.4); Platelet Count 76 K/uL (130-400); RDW Coefficient of Variation 14.1 % (11.5-14.5); RDW Standard Deviation 46.7 fL (36.4-46.3); Red Blood Count 3.86 M/uL (4.7-6.1); White Blood Count 14.54 K/uL (4.8-10.8)
[2021-09-29 06:51] LABS: Platelet Estimate Decreased (Normal)
[2021-09-29] MEDS ORDERED: DIGOXIN 500 MCG in SYRINGE 9 ML IV STA (09:02)
--- NOTE | 2021-09-29 09:08 | Cardiology Progress Note ---
Date of Service September 29, 2021 Assessment & Plan (1) Atrial fibrillation with RVR: (2) Acute respiratory failure with hypoxia: (3) Ambulatory dysfunction: (4) COVID-19: (5) CKD (chronic kidney disease), stage III: Plan: The patient continues to have high heart rates due to his atrial fibrillation despite the addition of IV metoprolol to his IV diltiazem. I believe the only option here is to try digoxin 500 mcg IV x1 to see if we have any response. In this setting, with an elderly gentleman who is hypoxic with Covid, atrial fibrillation is very hard to control. Hopefully with the addition of digoxin we can him prove his heart rates. Admission and Anticipated Discharge Date Admission Date: September 21, 2021 Subjective Medical record reviewed and discussed with primary service. The patient continues to have high heart rates despite diltiazem and metoprolol IV. He is still hypoxic and requiring BiPAP. Results & Data ([facility]) Vital Signs (Past 12 Hours) Vital Signs Temp Pulse Pulse Resp BP BP Pulse Ox 09/29/21 07:39 133 H 26 H 88 L 09/29/21 07:18 37.1 C 120 H 22 90/60 L 86 L 09/29/21 04:12 152 H 107/76 09/29/21 02:47 37.1 C 138 H 22 127/83 87 L 09/29/21 00:53 153 H 118/77 09/28/21 23:40 155 H 33 H 88 L 09/28/21 22:33 37.0 C 145 H 22 122/73 87 L 09/28/21 22:20 119 H Laboratory Results Laboratory Results - last 24 hr 09/29/21 09/29/21 09/29/21 05:40 05:40 05:40 WBC 14.54 H RBC 3.86 L Hgb 11.6 L Hct 35.8 L MCV 92.7 MCH 30.1 MCHC 32.4 RDW Std Deviation 46.7 H RDW Coeff of Ga 14.1 Plt Count 76 L MPV 12.6 H Platelet Estimate Decreased L APTT 42.4 H PTT Ratio 1.6 Sodium 146 H Potassium 4.9 Chloride 118 H Carbon Dioxide 20 L Anion Gap 8 BUN 83 H Creatinine 1.75 H Est Cr Clr Drug Dosing 34.3 Est GFR ( Amer) 40.0 Est GFR (Non-Af Amer) 34.5 BUN/Creatinine Ratio 47.4 H Glucose 153 H Calcium 7.2 L Medications Administered Current Inpatient Medications Acetaminophen (Acetaminophen 325 Mg Tab) 650 mg PO Q4H PRN PRN Reason: Pain or Fever Stop: 10/21/21 19:52 Last Admin: 09/23/21 00:25 Dose: 650 mg Documented by: Amlodipine Besylate (Amlodipine Besylate 5 Mg Tab) 2.5 mg PO HS [facility] Stop: 10/21/21 22:49 Last Admin: 09/21/21 23:35 Dose: 2.5 mg Documented by: Aspirin (Aspirin 81 Mg Ectab) 81 mg PO DAILY [facility] Stop: 10/22/21 08:59 Last Admin: 09/28/21 08:05 Dose: Not Given Documented by: Famotidine (Famotidine 10 Mg Tablet) 10 mg PO BID [facility] Stop: 10/21/21 20:59 Last Admin: 09/28/21 20:05 Dose: Not Given Documented by: Guaifenesin (Guaifenesin 600 Mg Tabcr) 1,200 mg PO Q12 [facility] Stop: 10/23/21 20:59 Last Admin: 09/28/21 20:06 Dose: Not Given Documented by: Hydralazine HCl (Hydralazine Hcl 20 Mg/Ml Vial) 10 mg IV Q6H PRN PRN Reason: hypertension Stop: 10/21/21 17:37 Last Admin: 09/21/21 21:47 Dose: 10 mg Documented by: Dexamethasone 6 mg/ Syringe 1.5 mls @ 1 mls/min IV DAILY@0900 [facility] Stop: 09/30/21 09:02 Last Admin: 09/28/21 08:07 Dose: 1 mls/min Documented by: Diltiazem HCl 125 mg/ Dextrose 125 mls @ 15 mls/hr IV .Q8H20M [facility]; Protocol Stop: 10/22/21 10:14 Last Titration: 09/29/21 07:07 Dose: 15 mg/hr, 15 mls/hr Documented by: Dextrose/Sodium Chloride (D5w And 1/2nss) 1,000 mls @ 60 mls/hr IV .[id number] [facility] Stop: 10/24/21 16:14 Last Admin: 09/29/21 04:12 Dose: 60 mls/hr Documented by: Heparin Sodium/Dextrose (Heparin Sodium/Dextrose) 25,000 units in 500 mls @ 16 mls/hr IV .Q24H [facility]; Protocol Stop: 10/25/21 12:44 Last Titration: 09/29/21 07:07 Dose: 800 units/hr, 16 mls/hr Documented by: Digoxin 500 mcg/ Syringe 11 mls @ 2 mls/min IV NOW STA Stop: 09/29/21 09:07 Losartan Potassium (Losartan Potassium 50 Mg Tab) 100 mg PO DAILY [facility] Stop: 10/22/21 08:59 Last Admin: 09/24/21 10:16 Dose: Not Given Documented by: Menthol (Cough Drop (Sugar Free) Yesica 24 Yesica/1 Box) 1 yesica BUCCAL Q2H PRN PRN Reason: Sore Throat Stop: 10/22/21 01:14 Last Admin: 09/22/21 02:29 Dose: 1 yesica Documented by: Metoprolol Tartrate (Metoprolol Tartrate 1 Mg/Ml Vial) 5 mg IV Q6 PRN PRN Reason: HR persistently>120 Stop: 10/25/21 17:59 Last Admin: 09/27/21 05:55 Dose: 5 mg Documented by: Metoprolol Tartrate (Metoprolol Tartrate 1 Mg/Ml Vial) 5 mg IV Q4 [facility] Stop: 10/27/21 11:59 Last Admin: 09/29/21 04:12 Dose: 5 mg Documented by: Morphine Sulfate (Morphine Sulfate 2 Mg/Ml Carp) 2 mg IV Q3H PRN PRN Reason: Anxiety Stop: 10/12/21 22:59 Last Admin: 09/29/21 04:11 Dose: 2 mg Documented by: Neomycin/Polymyxin/Dexamethasone (Neomycin/Polymyxin/Dexametha Op Oint 3.5 Gm Tube) 1 appln OP HS PRN PRN Reason: Apply To Eyelid Stop: 10/21/21 19:52 Olanzapine (Olanzapine 10 Mg/2.1 Ml Sdv) 2.5 mg IM Q4H PRN PRN Reason: Anxiety/Agitation Stop: 10/23/21 21:48 Last Admin: 09/28/21 22:44 Dose: 2.5 mg Documented by: Polyethylene Glycol (Polyethylene (Miralax) 17 Gm Pack) 17 gm PO DAILY PRN PRN Reason: Constipation Stop: 10/21/21 19:52 Sodium Chloride (Sodium Chloride 0.65% Na Soln 45 Ml (Enigma)) 2 sprays NA BID PRN PRN Reason: Nasal Dryness Stop: 10/21/21 19:52
[2021-09-29] MEDS: dilTIAZem HCL 125 MG in DEXTROSE 5% 100 ML IV SCH (09:32)
[2021-09-29] MEDS: dexAMETHasone 6 MG in SYRINGE 0 ML IV SCH (09:33)
[2021-09-29] MEDS: ASPIRIN 81 MG ECTAB PO SCH (09:33)
[2021-09-29] MEDS: FAMOTIDINE 10 MG TABLET PO SCH (09:33)
[2021-09-29] MEDS: guaiFENesin 600 MG TABCR PO SCH (09:34)
--- NOTE | 2021-09-29 11:32 | Hospitalist Progress Note ---
Date of Service September 29, 2021 Assessment & Plan (1) Ambulatory dysfunction: (2) Acute respiratory failure with hypoxia: (3) Atrial fibrillation with RVR: Plan: 86-year-old male with PMH HTN, CKD III, PAD, anophthalmos left eye, presented to ER 09/21 with complaint of recurrent falls, generalized weakness and ambulatory dysfunction. He also has been bed ridden and feeling sick since last 3 weeks. Found covid Positive in the ED. he is being managed for the following: #. COVID-19 Pneumonia: #. Acute hypoxic respiratory failure # Metabolic encephalopathy Was feeling sick since 3 weeks ago prior to presentation and shortness of breath over some days prior to presentation Patient not vaccinated Was not on oxygen at home At admission, SaO2 in the 80s in ED requiring 3 L nasal cannula with improvement in SaO2 to 94%. Admitting CXR consistent with viral pneumonia Tested positive to COVID 19 Procalcitonin negative Was started on dexamethasone Not a candidate for remdesivir due to duration. Oxygen requirement increased and currently on BIPAP Metabolic encephalopathy in setting of COVID 19 and Afib w/RVR Son reports patient has neurocognitive impairment CT head did not show any acute abnormalities Patient's clinical status has been declining over the past week in the hospital despite medical treatment Had a goals of care discussion with patient's and son at bedside today as well as patient's RN. Has been updating son daily over the past days Updated them about patient's current status They stated that they will like to stop all active treatment and transition to comfort care only I educated them on what to expect when BIPAP and drips are taken off and answered all their questions Comfort care measures ordered. All drips and other medications discontinued per family's wishes #. Ambulatory dysfunction: #. Recurrent Falls Per son, patient is bedridden and feeling sick since 3 weeks [employer] and has had multiple falls since 1 and half years. He uses walker. Admitting CXR positive for several old left rib fractures. Admitting CT head and x-ray hip/pelvis negative for any acute findings. Admitting CPK WNL #. Afib RVR Per previous provider, Patient denied history of A. fib in the past, not on any anticoagulation in the past. No history of blood clot in the past. TSH wnl. Patient became A. fib RVR at 7:23 AM 09/22/2021, heart rate in 130s to 140s. 09/22 ECHO: EF 60-65%, diastolic dysfxn, severe concentric LVH Afib w/RVR has been tough to control Has been on cardizem drip and metoprolol iv Got Digoxin this AM per Cardiology All drips and meds stopped per family's wishes above #. CKD (chronic kidney disease), stage III: YAA on CKD3 Likely due to poor oral intake. Was refusing oral meds. He has been pocketing food and pills sometimes even before admission per son Cr went up to 1.9. Currently 1.7. Baseline Cr: 1.6-1.7 #. Hypertension: Hypertensive in ER BP stable now Dispo Transfer to med/surg Admission and Anticipated Discharge Date Admission Date: September 21, 2021 Subjective Patient seen and examined Currently on BIPAP Unconscious. Withdraws to noxious stimuli ROS limited due to level of consciousness Physical Exam Constitutional: + ill appearing and + well hydrated; no acute distress Eyes: Left anophthalmos ENMT: On BIPAP Respiratory: On BIPAP, Diminished breath sounds globally Cardiovascular: Rate/Rhythm: + tachycardic and + irregularly irregular S1 S2 Gastrointestinal (Abdomen): normal bowel sounds, soft, nontender, no hepatosplenomegaly Neurologic: Unconscious. Withdraws to noxious stimuli Genitourinary: Garcia in situ Results & Data Results & Data ([facility]) Vital Signs (Past 12 Hours) Vital Signs Temp Pulse Pulse Resp BP BP Pulse Ox 09/29/21 11:11 36.6 C 100 H 18 100/68 91 09/29/21 09:50 148 H 09/29/21 09:33 116 H 96/52 L 09/29/21 07:39 133 H 26 H 88 L 09/29/21 07:18 37.1 C 120 H 22 90/60 L 86 L 09/29/21 04:12 152 H 107/76 09/29/21 02:47 37.1 C 138 H 22 127/83 87 L 09/29/21 00:53 153 H 118/77 09/28/21 23:40 155 H 33 H 88 L Laboratory Results Abnormal lab results 09/29/21 09/29/21 09/29/21 Range/Units 05:40 05:40 05:40 WBC 14.54 H (4.8-10.8) K/uL RBC 3.86 L (4.7-6.1) M/uL Hgb 11.6 L (14.0-18.0) g/dL Hct 35.8 L (42-52) % RDW Std Deviation 46.7 H (36.4-46.3) fL Plt Count 76 L (130-400) K/uL MPV 12.6 H (7.4-10.4) fL Platelet Estimate Decreased L (Normal) APTT 42.4 H (21.0-31.0) Seconds Sodium 146 H (136-145) mmol/L Chloride 118 H (98-107) mmol/L Carbon Dioxide 20 L (21-32) mmol/L BUN 83 H (6-23) mg/dl Creatinine 1.75 H (0.6-1.4) mg/dl BUN/Creatinine Ratio 47.4 H (10-20) Glucose 153 H (70-99(Fasting)) mg/dl Calcium 7.2 L (8.5-10.1) mg/dl
[2021-09-29] MEDS ORDERED: LORazepam 0.5 MG TAB PO PRN (13:43)
[2021-09-29] MEDS ORDERED: ONDANSETRON INJ 2 MG/ML 2 ML VIAL IV PRN (13:43)
[2021-09-29] MEDS ORDERED: ONDANSETRON 4 MG OD TAB SL PRN (13:43)
[2021-09-29] MEDS ORDERED: LORazepam 0.5 MG/1 ML VIAL IV PRN (13:43)
[2021-09-29] MEDS ORDERED: MoRPHine SULFATE 2 MG/ML CARP IV PRN (13:44)
[2021-09-29] MEDS: HEPARIN SODIUM/DEXTROSE 25,000 UNITS/500 ML BAG IV SCH (14:24)
--- NOTE | 2021-09-29 15:13 | Discharge Summary ---
Date of Service September 29, 2021 Admission HPI Per Admitting Provider Patient is 86-year-old male with PMH HTN, CKD III, PAD, anophthalmos left eye, presented to ER with complaint of fall. Cardiac history obtained from patient's son. Son reports 3 weeks ago both patient and patient's developed fevers, congestion, mild cough. Reports fever congestion and cough have resolved however patient has had weakness. Typically ambulates with cane however past 2 weeks has been sitting and recliner chair and feels too weak to ambulate. Reports patient with history recurrent falls in the past however since illness patient has been falling on almost daily basis. Reports a couple of days ago patient had a fall during the middle night and patient son was not notified by patient's so patient laid on floor for several hours before son got there in the morning. Reports last night patient had a fall around 2 AM and could not get patient up. Patient was on the floor for 6 hours today. Then reports past couple of days he has noticed patient seemed to be breathing heavie r and short of breath. Patient denies chest pain. Denies nausea, vomiting, diarrhea. Patient son reports patient has had steady decline with his memory and is worse past couple of years. Unable to further obtain ROS secondary to patient's cognitive status. Admission Exam Per Admitting Provider General: Elderly male, WDWN Head: normocephalic, atraumatic Eyes: PERRL, EOM's intact with no icterus of right eye. Left: anophthalmos ENT: hard of hearing, normal inspection external ears, nose, mucous membranes moist Neck: supple, trachea midline Lungs: on 3L via NC with respiration 24, +rales bases bilaterally CV: RRR, no pretibial edema Abd: normal BS, soft, non-tender Ext: no cyanosis, no calf tenderness Neuro: Alert, pleasantly confused, generalized weakness Skin: warm, dry Principal Diagnosis Acute respiratory failure with hypoxia COVID 19 pneumonia Afib w/RVR Discharge Exam Patient Discharge Data Allergies Allergy/AdvReac Type Severity Reaction Status Date / Time potato Allergy Severe ANAPHYLAXIS Verified 09/21/21 14:49 grass pollen-perennial rye, Allergy Intermediate ITCHY Verified 09/21/21 14:49 standar EYES, RUNNY NOSE, SNEEZING house dust Allergy Mild RUNNY Verified 09/26/21 20:20 NOSE, ITCHY EYES, SNEEZING hydrochlorothiazide Allergy Unknown Dizziness, Unverified 09/21/21 16:01 Itching, Nausea pantoprazole Allergy Unknown Headache Unverified 09/21/21 16:01 Penicillins Allergy Unknown HAPPENED Verified 09/21/21 14:49 TO LONG AGO TO REMEMBER Sulfa (Sulfonamide Allergy Unknown Rash/ Lip Unverified 09/21/21 16:01 Antibiotics) Swelling pseudoephedrine AdvReac Unknown Urinary Unverified 09/21/21 16:01 [From [facility]] Retention Consultations 09/21/21 16:29 ED Decision to Admit Stat 09/22/21 08:31 Consult Cardiology Routine Ordered Studies 09/21/21 12:16 CT head/brain wo con Stat Hospital Course (1) Ambulatory dysfunction: (2) Acute respiratory failure with hypoxia: (3) Atrial fibrillation with RVR: 86-year-old male with PMH HTN, CKD III, PAD, anophthalmos left eye, pr esented to ER 09/21 with complaint of recurrent falls, generalized weakness and ambulatory dysfunction. He also has been bed ridden and feeling sick since last 3 weeks. Found covid Positive in the ED. he is being managed for the following: #. COVID-19 Pneumonia: #. Acute hypoxic respiratory failure # Metabolic encephalopathy Was feeling sick since 3 weeks ago prior to presentation and shortness of breath over some days prior to presentation Patient not vaccinated Was not on oxygen at home On admission, SaO2 in the 80s in ED requiring 3 L nasal cannula with improvement in SaO2 to 94%. Admitting CXR consistent with viral pneumonia Tested positive to COVID 19 Procalcitonin negative Was started on dexamethasone Not a candidate for remdesivir due to duration. Oxygen requirement increased and currently on BIPAP Metabolic encephalopathy in setting of COVID 19 and Afib w/RVR Son reports patient has neurocognitive impairment CT head did not show any acute abnormalities Patient's clinical status continued to worsen Family decided to transition to comfort care measure only and stop BIPAP, meds, cardizem drip Patient shortly after discontinuation of these at 2:50pm on 09/29/21 Family ( and son) were at bedside #. Ambulatory dysfunction: #. Recurrent Falls #. Afib RVR #. CKD (chronic kidney disease), stage III: #. Hypertension: Total Time Total Time Spent Total Time Spent (In Minutes): 45 Total Time Includes: Discharge Planning and Other Discharge Plan Discharge Items Patient Disposition: Discharge Diagnosis: Acute respiratory failure with hypoxia COVID 19 pneumonia Other Date/Time: 09/29/21 14:50
--- NOTE | 2021-09-29 15:13 | Death Pronouncement Note ---
Date of Service September 29, 2021 Pronouncement Note Admission Date September 21, 2021 Date and Time of Date of : 09/29/21 Time of : 14:50 Summary Called by RN to evaluate patient No breathing movements Absent heart sound Right pupil fixed and dilated Patient pronounced . Family at bedside Additional Data Attending physician: Jeannie Francis MD
== END 2021-09-29 14:50 | disposition expired | DRG 177 ==
LOC: ED 11:40 → SUATTDRO 17:34 → EDINP 17:34 → 2W 21:20 → 2E 09-22 11:14